=== PATIENT | female | born 1930 | race African-American/Black ===

== ENCOUNTER 2017-05-26 11:41 | Outpatient (CLI) | payer MEDICARE, BC | END 2017-05-26 11:42 | disposition home or self-care (01) | LOC: BICRAD 11:41 | PROVIDERS: ATTEND Internal Medicine | DX: R91.8 Other nonspecific abnormal finding of lung field (principal); I51.7 Cardiomegaly | CPT/HCPCS: 71046 ==

== ENCOUNTER 2017-06-12 09:06 | Outpatient (CLI) | payer MEDICARE, BC | END 2017-06-12 09:07 | disposition home or self-care (01) | LOC: BICMAMMO 09:06 | PROVIDERS: ATTEND Internal Medicine | DX: Z12.31 Encounter for screening mammogram for malignant neoplasm of breast (principal) | CPT/HCPCS: 77063; 77067 ==

== ENCOUNTER 2018-06-01 11:55 | Inpatient (IN) | payer MEDICARE, BC ==
[2018-06-01 12:31] LABS: #Monocytes 0.4 thou/uL (0.11-0.59); #Neutrophils 2.3 thou/uL (1.40-6.50); %Basophils 0.7 % (0.0-1.0); %Eosinophils 0.1 % (0.0-10.0); %Monocytes 9.6 % (0.0-10.0); %Neutrophils 62.6 % (42.0-75.0); Hemoglobin 12.9 g/dL (12.0-16.0); Mean Corpuscular HGB CONC 30.6 g/dL (32.0-36.0); Mean Corpuscular Hemoglobin 28.5 pg (27.0-31.0); Mean Corpuscular Volume 93.2 fL (78.0-98.0); Platelet Count 153 thou/uL (130-400); RBC Distribution Width 13.4 % (11.5-14.5); Red Blood Cell (RBC) Count 4.53 mill/uL (4.20-5.40); White Blood Cell (WBC) Count 3.6 thou/uL (4.8-10.8)
[2018-06-01 12:53] LABS: ALT (SGPT) 92 U/L (8-55); AST (SGOT) 167 U/L (5-34); Albumin 3.6 g/dL (3.4-4.8); Alkaline Phosphatase 60 U/L (40-150); Anion Gap 18 mmol/L (10-20); BUN (Urea Nitrogen) 21 mg/dL (9.8-20.1); Bilirubin, Total 1.5 mg/dL (0.2-1.2); Calc. Creatinine Clearance 0 mL/min (70-130); Calcium 8.8 mg/dL (7.8-10.44); Carbon Dioxide 20 mmol/L (23-31); Chloride 105 mmol/L (98-107); Estimated GFR-MDRD 61; Globulin 2.9 g/dL (2.4-3.5); Glucose 109 mg/dL (83-110); Lipase 38 U/L (8-78); Potassium 3.6 mmol/L (3.5-5.1); Protein, Total 6.5 g/dL (6.0-8.3); Sodium 139 mmol/L (136-145)
--- NOTE | 2018-06-01 13:20 | CT ---
CT OF BRAIN PERFORMED WITHOUT CONTRAST ENHANCEMENT: Date: 06/01/18 HISTORY: Head injury status post fall. FINDINGS: Ventricular and cisternal system shows fairly age-appropriate change. There is decreased attenuation of the periventricular white matter consistent with chronic white matter change. There are no signs o f intracerebral hemorrhage or extra-axial fluid collections. The mastoid air cells and visualized sin uses are clear. IMPRESSION: No acute intracranial abnormalities. POS: [facility]
--- NOTE | 2018-06-01 13:26 | CT ---
CT CERVICAL SPINE PERFORMED WITHOUT CONTRAST ENHANCEMENT: Date: 06/01/18 HISTORY: Fall with neck pain. FINDINGS: Vertebral bodies are normal in height. There is marked disc narrowing at C6-7 and C7-T1. There are pr onounced degenerative facet changes present, which are more left-sided. The facets do appear to be wi thin normal alignment. There is moderate left-sided foraminal narrowing at C3-4 and mild bilateral fo raminal narrowing at C4-5 and right-sided foraminal narrowing at C5-6. There is no CT evidence for fr acture. The lung apices are clear. IMPRESSION: No CT evidence of fracture of the cervical spine. POS: [facility]
[2018-06-01] MEDS ORDERED: Furosemide 40 MG/4 ML VIAL ONE ×2 (14:03→20:02)
[2018-06-01 14:46] LABS: Bilirubin Negative (Negative); Blood, Urine Small (Negative); Clarity CLOUDY (Clear); Glucose, Urine (Dipstick) Negative (Negative); Leukocyte Negative (Negative); Nitrite Negative (Negative); Protein, Urine (Dipstick) 100 mg/dL (Neg-Trace); Specific Gravity, Urine 1.015 (1.002-1.036); pH, Urine 5.5 (5.0-9.0)
[2018-06-01 14:48] LABS: Bacteria/HPF None Seen HPF (None Seen); Hyaline Casts/LPF 7-10 HYALINE CAST LPF (0-3 Hyaline); Pathc Cast-AUWi Flag 1.45 (0-2.49)
[2018-06-01 14:57] LABS: Renal Epithelial None Seen HPF (0-3); Transitional Epithelial NONE SEEN HPF (0-3)
[2018-06-01 15:14] LABS: CKMB 3.1 ng/mL (0-6.6)
--- NOTE | 2018-06-01 15:29 | RAD ---
CHEST 1 VIEW: Date: 06/01/18 HISTORY: Cough. Shortness of breath. Lower extremity swelling. COMPARISON: 05/26/17. FINDINGS: There is rotation to the left. There is bony demineralization. There is some bilateral vascular conge stion with some parenchymal changes in the right lower lobe, becoming somewhat confluent, certainly c oncerning for the possibility of right lower lobe pneumonia. There is minimal cardiomegaly, as well a s some pleural and parenchymal opacity changes in the left retrocardiac region, although this does no t appear significantly changed from the prior study. IMPRESSION: Evidence for cardiomegaly with bilateral vascular congestion and overall stable pleural and parenchym al opacity changes in the left base and retrocardiac region. New parenchymal changes in the right low er lobe and infrahilar region, concerning for pneumonia. Rotation to the left. Bony demineralization. Atherosclerosis of aorta. POS: [facility]
[2018-06-01] MEDS ORDERED: Enoxaparin Sodium 80 MG/0.8 ML SYRINGE ONE (15:48)
[2018-06-01] MEDS ORDERED: Lorazepam 2 MG/ML VIAL ONE (19:21)
[2018-06-01] MEDS ORDERED: Ondansetron PF 4 MG/2 ML Vial IVP PRN (19:44)
[2018-06-01] MEDS ORDERED: Ondansetron ODT 4 MG TAB PO PRN (19:44)
[2018-06-01] MEDS ORDERED: Nitroglycerin 2% Ointment 1 INCH/1 GM Packet ONE (19:54)
[2018-06-01] MEDS ORDERED: VANCOMYCIN IVPB PRN (20:05)
[2018-06-01 20:55] LABS: Troponin I 0.537 ng/mL (< 0.028)
[2018-06-01] MEDS ORDERED: Vancomycin HCl 1 GM in Premix Bag 1 BAG IVPB SCH (21:00)
[2018-06-01] MEDS ORDERED: Cefepime 2 GM in Sodium Chloride 0.9% 100 ML IVPB SCH (21:00)
[2018-06-01] MEDS ORDERED: Vancomycin HCl 1.5 GM in Sodium Chloride 0.9% 250 ML 300 ML IVPB SCH (21:15)
[2018-06-01] MEDS ORDERED: Piperacillin/Tazobactam 3.375 GM in Sodium Chloride 0.9% 100 ML IVPB SCH (23:59)
[2018-06-02] MEDS ORDERED: Cefepime 2 GM in Sodium Chloride 0.9% 100 ML IVPB SCH ×2 (02:15→21:00)
[2018-06-02 05:29] LABS: Anion Gap 15 mmol/L (10-20); BUN (Urea Nitrogen) 24 mg/dL (9.8-20.1); Calc. Creatinine Clearance 43 mL/min (70-130); Calcium 8.1 mg/dL (7.8-10.44); Carbon Dioxide 26 mmol/L (23-31); Chloride 107 mmol/L (98-107); Estimated GFR-MDRD 67; Sodium 145 mmol/L (136-145)
[2018-06-02 05:33] LABS: Glucose 53 mg/dL (83-110); Potassium 2.9 mmol/L (3.5-5.1)
[2018-06-02] MEDS ORDERED: Dextrose 50% Abboject 50 ML SYRINGE ONE (05:40)
[2018-06-02] MEDS ORDERED: Dextrose 50% Abboject 50 ML SYRINGE IVP PRN (06:00)
[2018-06-02] MEDS ORDERED: Dextrose 5% in Water 1,000 ML IV PRN (06:00)
[2018-06-02] MEDS ORDERED: Insulin Regular 300 UNITS/3 ML VIAL SC PRN (06:00)
[2018-06-02] MEDS: Potassium Chloride 20 MEQ in Premix Bag 1 BAG IVPB SCH ×2 (06:15→09:18)
[2018-06-02 06:39] LABS: Band 4 % (5-11); Hemoglobin 11.8 g/dL (12.0-16.0); Hypochromia SLIGHT = 6-15 cells (100X) (0-5/hpf); Lymphocytes 20 % (21-51); MDiff Complete? YES; Mean Corpuscular Hemoglobin 28.5 pg (27.0-31.0); Mean Corpuscular Volume 89.3 fL (78.0-98.0); Metamyelocyte 4 % (0-0); Monocytes 48 % (0-10); Myelocyte 2 % (0-0); Neutrophil 22 % (42-75); Platelet Count 93 thou/uL (130-400); Platelet Morphology Comment Appears Decreased; RBC Distribution Width 13.3 % (11.5-14.5); Red Blood Cell (RBC) Count 4.14 mill/uL (4.20-5.40); Reflex for Review?? YES
--- NOTE | 2018-06-02 06:39 | HP ---
PRIMARY CARE DOCTOR: Ana Cortez MD CODE STATUS: Full code. TIME OF EVALUATION: 07:20 p.m. CHIEF COMPLAINT: Shortness of breath. HISTORY OF PRESENT ILLNESS: This is an 87-year-old female patient with past medical history of hypertension, diabetes, CHF, arthritis, came to the hospital after having a fall. The patient has been getting weak for the past few days and probably worsening shortness of breath. As per family members, the patient had been taking Lasix; however, she had missed few doses in the past few days. Symptoms were severe. The patient came with hypoxic respiratory failure. Positive chest x- ray for congestive heart failure. The patient was needing BiPAP to keep saturation above 90 and has significant rales bilaterally. Symptoms are severe, likely treated for underlying CHF and also pneumonia. The patient had associated fever of 102 in the ER. REVIEW OF SYSTEMS: Unable to obtain. The patient is not able to give any history due to respiratory distress and an underlying confusion. PAST MEDICAL HISTORY: As mentioned in the HPI. PAST SURGICAL HISTORY: Colon surgery. PSYCH HISTORY: No previous psych history. SOCIAL HISTORY: No alcohol. No drugs. Quit smoking more than 10 years ago. KNOWN ALLERGIES: Penicillin reported. FAMILY HISTORY:Reviewed and no contributory for current presentation. MEDICATIONS: 1. Verapamil. 2. Bisoprolol. 3. Metformin. 4. Furosemide. 5. Clonidine. PHYSICAL EXAMINATION: VITAL SIGNS: On presentation, blood pressure 204/99 with heart rate 63, respiratory rate was 14, and temperature 98.4. Pain was zero. Oxygen saturation was 88 on home BiPAP. Blood pressures come down after treatment of anxiety and respiratory treatment. GENERAL APPEARANCE: The patient is alert, she is oriented, in distress due to respiratory failure. HEENT: Eye, normal conjunctivae. Moist oral mucosa. Anicteric. Bilateral JVD. RESPIRATORY: Bilateral rales with decreased air entry. Wheezing. The patient is tachypneic, in respiratory distress. CARDIOVASCULAR: Tachycardiac, hypertensive, regular rhythm. No murmurs. No gallop. Bilateral leg edema. ABDOMEN: Normal bowel sounds. MUSCULOSKELETAL: Baseline range of motion and strength. No tenderness. SKIN: Warm, intact. No pallor. No rash. No redness. Peripheral pulses are present. Capillary refill seems to be intact. NEURO: No evidence of any new focal weakness. Baseline speech. Cranial nerve seems to be intact. PSYCH: The patient is confused, in distress, willing to take the BiPAP off, unable to explore psych. DIAGNOSTIC DATA: EKG was reviewed. The patient has normal sinus rhythm with a rate of 68, VT 172, QRS 100, and QT corrected 472. Brain CT was reviewed. The patient has no acute intracranial abnormalities. Cervical spine, the patient has no CTA evidence of fracture of the cervical spine. Chest x-ray, the patient has evidence for cardiomegaly with bilateral vascular congestion. Overall stable. Parenchymal opacities changes in the left base and retrocardiac region. No parenchymal changes in the right lower lobe and infrahilar regions concerning for pneumonia. Rotation to the left . Atherosclerosis of aorta. labs were reviewed - elevated troponin, d-dimer, lft's, leukopenia, rest normal ASSESSMENT AND PLAN: 1. Acute hypoxic respiratory failure, pt pt presented with hypoxia needing bipap to keep saturation above 90, likely due to underlying pulmonary edema and also pneumonia. Will continue with non invasive positive pressure ventilation, will treat underlying etiologies. 2. Possible pneumonia pt has fever, cxr reportedly with pneumonia as per radiology report, will continue antibiotics, follow cultures. 3. CHF exacerbation patient presented with pulmonary edema, has received diuresisi and has gotten 1300 ml output, will cotinue lasix although fluid balance could be different since pt has underlying sepsis. 4. NSTEMI likely type 2, due to underlying comorbidities inlcuding chf exacerbation and also sepsis, we will trend, would consult cardiology for any further recommendations, 5. Elevated lft's likely due to underlying chf, would trend and treat accordingly. 6. Elevated dimer, pt received lovenox, pe to be ruled out. 7. Sepsis with organ dysfunction, pt presented with pneumonia , fever, respiratory failure, congestive heart failure, started on abt's fluid resuscitation, limitted due to underlying chf, will need to find right fluid balance. 8. DVT prophylaxis - on lovenox Job ID: [id number] [facility]
[2018-06-02] MEDS ORDERED: Prevnar 13-Val Conj/PF 0.5 ML SYRINGE IM ONE (09:00)
[2018-06-02] MEDS ORDERED: Furosemide 40 MG/4 ML VIAL ONE (10:25)
[2018-06-02] MEDS ORDERED: Potassium Chloride 20 MEQ TAB PO SCH (11:15)
--- NOTE | 2018-06-02 12:10 | CON ---
DATE OF CONSULTATION: HISTORY OF PRESENT ILLNESS: Rosaura Galindo is an 87-year-old black female, who has been evaluated by Dr. Alcaraz in the past in the office for peripheral vascular disease. She denies any history of heart failure or myocardial infarction. Apparently, she has been having increasing weakness and worsening shortness of breath over the last several days. She had a fall at home and was brought to the emergency room. She was hypoxic and BiPAP, was needed to keep her saturation above 90. Transferred with a temperature of 102 in the emergency room. Blood pressure was 204/99. In the emergency room, she received Lasix 80 mg IV, DuoNeb, Lovenox 1 mg/kg, Ativan 0.5 IV, nitroglycerin patch 1 inch topically, and then later an additional 40 mg of Lasix. She denies any chest discomfort. PAST MEDICAL HISTORY: Family member stated that she has congestive heart failure, although Ms. Galindo denies this. She has history of hypertension, diabetes, and arthritis. MEDICATIONS: 1. Verapamil 180 b.i.d. 2. Bisoprolol 10 mg b.i.d. 3. Metformin 500 mg daily. 4. Furosemide 20 mg b.i.d. 5. Clonidine 0.1 mg daily. ALLERGIES: PENICILLIN. PAST SURGICAL HISTORY: Hysterectomy. SOCIAL HISTORY: She stopped smoking in 1959. She does not drink. REVIEW OF SYSTEMS: Review of systems is otherwise unremarkable. PHYSICAL EXAMINATION: VITAL SIGNS: Blood pressure 165/72 and pulse of 74. HEENT: PERRL. NECK: Supple. CHEST: Reveals bilateral expiratory wheezing and bilateral crackles. CARDIOVASCULAR: S1 and S2 normal without any S3, S4, or murmurs. ABDOMEN: Normal bowel sounds without tenderness or organomegaly. EXTREMITIES: Reveal 1+ pretibial edema. NEUROLOGIC: Grossly intact. SKIN: Warm and dry. LABORATORY DATA: EKG revealed normal sinus rhythm with lateral ST-segment depression and poor R-wave progression V1 to V2. Hemoglobin 11.8, hematocrit 37.0, white count 4000, and platelets 93,000. D-dimer 3.61. Sodium 145, potassium 2.9, chloride 107, carbon dioxide 24, BUN 12, and creatinine 0.96. Troponin I is up to 0.537. BNP 13,998.4. AST 167, ALT 92, and alkaline phosphatase is normal. Chest x-ray reveals cardiomegaly and bilateral vascular congestion. It also appears to be an infiltrate on the right. IMPRESSION: 1. Fall at home. 2. Probable right lung pneumonia. 3. Acute on chronic congestive heart failure with BNP of almost 14,000. 4. Hypertension. 5. Diabetes. 6. Former smoker. 7. Arthritis. 8. Non-ST segment elevation myocardial infarction versus demand ischemia. PLAN: The patient will continue to be diuresed. She has been placed on cefepime. With presumed left ventricular dysfunction, the verapamil needs to be discontinued. She will be started on carvedilol with gradual increasing doses. Job ID: [id number] [facility]
[2018-06-02] MEDS ORDERED: Magnesium Sulfate 4 GM in Sodium Chloride 0.9% 250 ML 250 ML IVPB SCH (13:00)
--- NOTE | 2018-06-02 13:20 | CON ---
DATE OF CONSULTATION: SERVICE: Pulmonary Medicine. REASON FOR CONSULTATION: Respiratory failure. HISTORY OF PRESENT ILLNESS: The patient is an 87-year-old female with past medical history significant for diabetes and heart failure. She presented to the hospital with increasing shortness of breath. She might have had an episode of vomiting. She is a very poor historian and really cannot provide much history. Many things that I ask her about, she will answer and then her family will have to correct her. She was noted to have a fever of 102 in the emergency department. Either way, because of the shortness of breath, she presented to the ER. She required BiPAP, intermittently. Overnight, she was diuresed and given some nitroglycerin paste because of severely elevated blood pressures. She was given some antibiotics. She was on BiPAP briefly, but this was discontinued early this morning. At this point, she is breathing comfortably and has no complaints of chest pain, fevers, chills, nausea, or vomiting. She is coughing. She is not bringing up any sputum based on what she tells me. Otherwise, there has been no interval change to her condition. PAST MEDICAL HISTORY: 1. Heart failure. 2. Hypertension. 3. Dyslipidemia. 4. Type 2 diabetes mellitus. PAST SURGICAL HISTORY: Colon surgery. SOCIAL HISTORY: Negative for alcohol, tobacco, or illicit drug use. She has a greater than 50-pack year history of smoking. She denies any illicit drugs and has no exposure to chemicals, dust, asbestos, or tuberculosis. FAMILY HISTORY: Noncontributory. ALLERGIES: PENICILLIN. MEDICATIONS: List of her inpatient medications was reviewed. No specific updates were made at this time. REVIEW OF SYSTEMS: General, head, ears, eyes, nose, throat, cardiovascular, respiratory, GI, , musculoskeletal, neurologic, and skin are negative except as mentioned in the HPI. PHYSICAL EXAMINATION: VITAL SIGNS: Afebrile currently. She had a T-max of 99.7 in our current system. That being said, there was a reported temperature of 102 in the emergency department. Pulse 74, blood pressure 151/90, respirations 27, and saturation 97 % on 2 L nasal cannula. GENERAL: The patient is awake and alert, in no apparent distress. LUNGS: Decent air entry. There is no prolonged expiratory phase. Extensive crackles and rhonchi are noted. No wheezing are appreciated. HEART: Normal rate and regular. ABDOMEN: Soft, nontender, and nondistended. Bowel sounds are positive. MUSCULOSKELETAL: No cyanosis or clubbing. There is trace pitting in the bilateral lower extremities. NEUROLOGIC: Grossly nonfocal. LABORATORY DATA: WBC 4.0, hemoglobin 11.8, and platelets 93,000 and downtrending. Neutrophil count is 22% on top of 4% bands. Monocyte count is interestingly 48% . D-dimer 3.61. Potassium 2.9, glucose 53. Magnesium 1.0. Troponin 0.537, which is up trending. BNP 14,000. AST and ALT are marginally elevated. Total bilirubin 1.5. Creatinine is downtrending to 0.9. Urine cultures are unremarkable to date. IMAGING STUDIES: 1. CT of the brain demonstrates no acute intracranial abnormality. 2. CT of the C-spine demonstrates no acute subluxation or fracture of the C- spine. 3. Chest x-ray demonstrates cardiomegaly, bilateral vascular congestion. The left base has a consolidation. Pneumonia cannot be excluded. No pneumothorax is otherwise identified. ASSESSMENT: 1. Acute hypoxic respiratory failure. 2. Community-acquired pneumonia. 3. Severe sepsis. 4. Acute on chronic heart failure, underlying type not known at this point. 5. Osp-FX-asizmcute myocardial infarction. 6. Electrolyte derangement. DISCUSSION AND PLAN: I will replace the potassium and magnesium. We will check all these things and phosphorus tomorrow morning. I agree with our empiric antibiotic coverage for lung-related issues. I will add blood cultures x2 if she has an additional fever. At this point, I think we can postpone a V/Q scan as the patient has had a profound improvement to diuretics and supportive measures. Nitroglycerin paste will be interrupted. Pulmonary/Critical Care will continue to follow while the patient remains in this location. 70 minutes have been devoted to this patient in various activities. I personally reviewed all imaging studies and laboratory data noted within this document. For fifty percent of this time, I was interacting with the patient at the bedside or coordinating care with the care team. For the remainder of the time I was immediately available to the patient in the hospital unit. Job ID: [id number] [facility]
[2018-06-02] MEDS: Potassium Chloride 20 MEQ TAB PO SCH ×3 (13:25→18:10)
[2018-06-02] MEDS ORDERED: Furosemide 40 MG/4 ML VIAL SLOW IVP SCH (14:00)
[2018-06-02] MEDS: Carvedilol 3.125 MG TAB PO SCH (18:10)
[2018-06-02] MEDS ORDERED: Vancomycin HCl 750 MG in Sodium Chloride 0.9% 250 ML 250 ML IVPB SCH (22:00)
[2018-06-03 05:39] LABS: Anion Gap 12 mmol/L (10-20); BUN (Urea Nitrogen) 26 mg/dL (9.8-20.1); Calc. Creatinine Clearance 41 mL/min (70-130); Calcium 8.3 mg/dL (7.8-10.44); Carbon Dioxide 29 mmol/L (23-31); Chloride 108 mmol/L (98-107); Estimated GFR-MDRD 65; Glucose 87 mg/dL (83-110); Magnesium 2.3 mg/dL (1.6-2.6); Potassium 4.4 mmol/L (3.5-5.1); Sodium 145 mmol/L (136-145)
[2018-06-03 05:43] LABS: Phosphorus 1.9 mg/dL (2.3-4.7)
[2018-06-03] MEDS: Furosemide 40 MG/4 ML VIAL SLOW IVP SCH (06:30)
[2018-06-03] MEDS ORDERED: Potassium Chloride 20 MEQ TAB PO SCH (08:00)
[2018-06-03] MEDS ORDERED: Potassium Phosphate 14 MMOL in Sodium Chloride 0.9% 250 ML 250 ML IVPB SCH (08:00)
[2018-06-03] MEDS: Carvedilol 3.125 MG TAB PO SCH ×2 (08:39→15:23)
--- NOTE | 2018-06-03 12:15 | PRG ---
DATE OF SERVICE: SUBJECTIVE: The patient is seen and examined at bedside. Two family members present in the room during my visit. The patient's questions are answered satisfactorily. OBJECTIVE: VITAL SIGNS: Blood pressure is 138/68, pulse is 76, respiratory rate is 32, and O2 saturation is 100. HEENT: Head is atraumatic and normocephalic. Eyes are PERRLA. Sclerae nonicteric. Oral mucosa is moist. NECK: Supple. LUNGS: Bilateral rales and crackles present. HEART: S1 and S2 distant. No S3. No S4. ABDOMEN: Soft and nontender. Bowel sounds are present. No organomegaly. EXTREMITIES: 2+ peripheral edema, similar bilaterally. NEUROLOGICAL: She follows my commands. She moves her all four extremities. LABORATORY DATA: Labs showed sodium of 145, potassium 4.4, chloride 108, CO2 of 29, BUN 26, creatinine 0.98, and phosphorus 1.9. Glycemia is ranging from 85 to 100, calcium 8.3, and magnesium 2.3. Microbiology, urine culture is growing 25,000 to 50,000 of mixed skin nikki. IMPRESSION: 1. Community-acquired pneumonia. 2. Respiratory failure. 3. Acute on chronic heart failure. 4. Zte-AI-tushlraxc myocardial infarction. 5. Hypophosphatemia. PLAN: Plan is to replace phosphorus. Continue diuresis. Awaiting echocardiogram results. Continue IV antibiotic with cefepime and continue O2. Obtain CBC today and BMP along with CBC tomorrow morning. Use additional 40 mg of Lasix IV push since her respiratory rate is increased this morning and she has significant rales and rhonchi on both lungs. Job ID: [id number]
[2018-06-03 12:31] LABS: Band 50 % (5-11); Hemoglobin 11.6 g/dL (12.0-16.0); Lymphocytes 11 % (21-51); MDiff Complete? YES; Mean Corpuscular HGB CONC 30.9 g/dL (32.0-36.0); Mean Corpuscular Hemoglobin 28.7 pg (27.0-31.0); Mean Corpuscular Volume 93.1 fL (78.0-98.0); Mean Platelet Volume 10.6 fL (7.4-10.4); Metamyelocyte 9 % (0-0); Monocytes 3 % (0-10); Myelocyte 1 % (0-0); Neutrophil 26 % (42-75); Platelet Count 111 thou/uL (130-400); RBC Distribution Width 13.2 % (11.5-14.5); Red Blood Cell (RBC) Count 4.02 mill/uL (4.20-5.40); White Blood Cell (WBC) Count 7.2 thou/uL (4.8-10.8)
[2018-06-03 12:33] LABS: Anion Gap 13 mmol/L (10-20); BUN (Urea Nitrogen) 26 mg/dL (9.8-20.1); Calc. Creatinine Clearance 41 mL/min (70-130); Calcium 8.3 mg/dL (7.8-10.44); Carbon Dioxide 29 mmol/L (23-31); Chloride 108 mmol/L (98-107); Estimated GFR-MDRD 65; Glucose 115 mg/dL (83-110); Potassium 4.1 mmol/L (3.5-5.1); Sodium 146 mmol/L (136-145)
--- NOTE | 2018-06-03 13:29 | PRG ---
DATE OF SERVICE: 06/03/2018 SERVICE: Pulmonary Medicine. INTERVAL HISTORY: The patient is doing great from respiratory standpoint. Breathing comfortably. Denies any current chest pain, fevers, or chills. Otherwise, there has been no change to her condition. She is breathing much more comfortably today. She is having a little bit more wheezing. She has got some forced exhalation maneuvers present. She did not require the BiPAP last night. I talked to the patient's family today. Apparently, she has been having some issues with memory going back for several years. They are slowly progressing. PHYSICAL EXAMINATION: VITAL SIGNS: Afebrile with a temperture-max of 99.4, pulse 76, blood pressure 147/65, respirations are 24, and saturation 99% on 2 L nasal cannula. GENERAL: The patient is awake and alert, in no apparent distress. LUNGS: Decent air entry. There is a prolonged expiratory phase. Crackles and wheezing are both appreciated. HEART: Normal rate. Regular. ABDOMEN: Soft, nontender, and nondistended. Bowel sounds are positive. MUSCULOSKELETAL: No cyanosis or clubbing. There is no pitting in the bilateral lower extremities. NEUROLOGIC: Grossly nonfocal. LABORATORY DATA: WBC 7.2, hemoglobin 11.6, and platelets are 111,000 and improving. Neutrophil count is 26% on top of 50% bands. D-dimer 3.61. Creatinine 0.98 and BUN 26. Basic metabolic profile is otherwise unremarkable except for a sodium of 146. Phosphorus 1.9. Chloride remains elevated. Urinalysis is unremarkable. IMAGING DATA: Chest x-ray demonstrates cardiomegaly. There is an infiltrate in the right lower lobe. I do not see any pleural effusion present. ASSESSMENT: 1. Acute hypoxic respiratory failure. 2. Community-acquired pneumonia. 3. Fnfig-mg-defcemr heart failure, echo pending. 4. Xef-UH-nfdetddqd myocardial infarction. 5. Electrolyte abnormalities, resolved. 6. Dementia. DISCUSSION AND PLAN: We will continue replacing the phosphorus. I will back off on the Lasix a little bit as she has a severe sepsis and may need her volume right now. We will need to diurese later. We will put her on touch of free water to prevent the hypernatremia from becoming excessive. I will schedule some nebulized medications, and albuterol, treating her acute bronchitis versus chronic obstructive pulmonary disease exacerbation. We will work on mobilization. Pulmonary Critical Care will continue to follow. Job ID: [id number] [facility]
[2018-06-03] MEDS ORDERED: K-Phos Neutral 250 MG TAB PO SCH (13:30)
[2018-06-03] MEDS ORDERED: predniSONE 20 MG TAB PO SCH (13:30)
--- NOTE | 2018-06-03 14:26 | RAD ---
PORTABLE AP CHEST: Date: 06/03/18 HISTORY: Hypoxemia. COMPARISON: 06/01/18. FINDINGS: Cardiac silhouette is magnified by projection, but does appear enlarged. There has been interval incr ease in patchy parenchymal air space opacity at the right lung base suggesting worsening pneumonia. T here is suboptimal evaluation of the left lung base due to technique of the exam and overlying cardia c silhouette. However, there is suggestion of minimal patchy density in the left mid lung zone, which may be related to air space opacity and infectious process. Vascular calcifications seen in thoracic aorta. There is bilateral glenohumeral osteoarthropathy. IMPRESSION: 1. Worsening pneumonia right lung base. 2. Patchy density left mid lung zone, which may also be related to infectious process, and continued follow-up to resolution is recommended. 3. Suboptimal evaluation of left lung base. 4. Cardiomegaly. POS: [facility]
[2018-06-03] MEDS: Dextrose 5% in Water 1,000 ML IV SCH (15:30)
[2018-06-04] MEDS: Furosemide 40 MG/4 ML VIAL SLOW IVP SCH (06:19)
[2018-06-04 06:56] LABS: Anion Gap 16 mmol/L (10-20); BUN (Urea Nitrogen) 31 mg/dL (9.8-20.1); Calc. Creatinine Clearance 38 mL/min (70-130); Calcium 9.1 mg/dL (7.8-10.44); Carbon Dioxide 28 mmol/L (23-31); Chloride 105 mmol/L (98-107); Estimated GFR-MDRD 60; Glucose 195 mg/dL (83-110); Potassium 4.6 mmol/L (3.5-5.1); Sodium 144 mmol/L (136-145)
[2018-06-04 07:13] LABS: Hemoglobin 12.2 g/dL (12.0-16.0); Mean Corpuscular HGB CONC 31.4 g/dL (32.0-36.0); Mean Corpuscular Hemoglobin 28.4 pg (27.0-31.0); Mean Corpuscular Volume 90.7 fL (78.0-98.0); Mean Platelet Volume 11.2 fL (7.4-10.4); Platelet Count 100 thou/uL (130-400); RBC Distribution Width 13.2 % (11.5-14.5); Red Blood Cell (RBC) Count 4.29 mill/uL (4.20-5.40); White Blood Cell (WBC) Count 6.6 thou/uL (4.8-10.8)
--- NOTE | 2018-06-04 07:27 | HP ---
please see previous note, thank you [facility]
--- NOTE | 2018-06-04 08:35 | PRG ---
DATE OF SERVICE: 06/02/2018 SUBJECTIVE: The patient is seen and examined at the bedside. She is on a BiPAP mask during my visit. She feels somewhat better. She is n.p.o. OBJECTIVE: VITAL SIGNS: Blood pressure is 165/72, pulse is 74, respiratory rate is 26, temperature is 98.3, O2 saturation is 94% on BiPAP. HEENT: Her head is atraumatic and normocephalic. Sclerae nonicteric. Conjunctivae pinkish. Oral mucosa is not examined since she wears the mask. LUNGS: Bilateral wheezes and crackles present front and back. HEART: S1 and S2 normal. No S3. No S4. ABDOMEN: Soft, nontender. Bowel sounds are present. No organomegaly. EXTREMITIES: 2 to 3+ peripheral edema similar bilaterally. NEUROLOGICAL EXAMINATION: She is alert and oriented x4. There is no any sensory or motor deficits present. Cranial nerves are intact. LABORATORY DATA: Labs showed white count of 4.0, hemoglobin 11.4, hematocrit 37.0, platelet count is 93,000, 4 bands. Sodium of 145, potassium 2.9, chloride 107, CO2 of 26, BUN 24, creatinine 0.96, glucose 53, calcium 8.1. Second set of troponin is 0.537. Microbiology; urine culture preliminary, less than 10,000 colonies of normal skin nikki. IMPRESSION: 1. Pneumonia. 2. Acute congestive heart failure. 3. Respiratory failure with hypoxemia. 4. . 5. Elevated D-dimers and the patient is scheduled for V/Q scan. 6. Hypertension. 7. Diabetes mellitus. PLAN: We will replace her potassium 40 p.o. plus IV, start on Lasix 40 mg twice a day. Check magnesium level. Obtain Cardiology consultation. She is scheduled for V/Q scan this morning, will stop BiPAP and switch her to nasal cannula. She will be seen by contact lens molder, Dr. Steele, who is public information specialist and we will change her diet from n.p.o. to diabetic. Job ID: [id number]
[2018-06-04 08:38] LABS: Band 10 % (5-11); Hypochromia SLIGHT = 6-15 cells (100X) (0-5/hpf); Lymphocytes 8 % (21-51); MDiff Complete? YES; Monocytes 4 % (0-10); Neutrophil 78 % (42-75); Platelet Morphology Comment Appears Decreased; Polychromasia SLIGHT = 2-3 cells (100X) (0-2/hpf)
[2018-06-04] MEDS: predniSONE 20 MG TAB PO SCH (09:09)
[2018-06-04] MEDS: Carvedilol 3.125 MG TAB PO SCH ×2 (09:09→16:21)
[2018-06-04] MEDS: K-Phos Neutral 250 MG TAB PO SCH (09:09)
[2018-06-04 09:12] LABS: Phosphorus 2.4 mg/dL (2.3-4.7)
--- NOTE | 2018-06-04 12:07 | PRG ---
DATE OF SERVICE: 06/04/2018 SUBJECTIVE: The patient is seen and examined at bedside. She had several bowel movements yesterday. Her appetite is fair. OBJECTIVE: VITAL SIGNS: Blood pressure is 171/86, pulse is 77. She is on 3 L by nasal cannula. Her pulse oximetry is 86 based on the 8 a.m. vitals. HEENT: Her pupils are responding to light properly. Sclerae are nonicteric. NECK: Supple. JVD plus. LUNGS: Bilateral rales and crackles present. HEART: S1 and S2. Somewhat tachycardic. No S3. No S4. ABDOMEN: Soft and nontender. EXTREMITIES: 2+ peripheral edema similar bilaterally. NEUROLOGIC: She follows my commands. She moves her all 4 extremities. There is no any motor deficits. LABORATORY DATA: Labs showed normal white count, hemoglobin 12.2, hematocrit 38.5, and platelet count is 100. Normal electrolytes. BUN 31, creatinine 0.05, glycemia is ranging from 158 to 185. MICROBIOLOGY: Urine culture showed 25,000 to 50,000 mixed skin nikki. DIAGNOSTIC DATA: Echocardiogram showed LVEF diminished at 20% to 25%, moderately enlarged right ventricle cavity, moderate mitral regurgitation, severe tricuspid regurgitation, and moderate pulmonic regurgitation. IMPRESSION: 1. Severe pneumonia. 2. Respiratory failure. 3. Acute on chronic heart failure with left ventricular ejection fraction down to 20% to 25% on a recent echo with multiple valve insufficiencies. 4. Non-ST elevation myocardial infarction. 5. Hypophosphatemia, corrected. PLAN: Plan is to continue her levofloxacin. She was started on prednisone yesterday. We will continue her steroids. We will continue her DuoNeb. We will continue her IV Lasix. The x-ray showed some worsening of pneumonia and her cefepime was switched to levofloxacin by greenhouse worker. We will continue O2 and she is high risk for complications. I met with the family daily and updated about her progress. Job ID: [id number]
--- NOTE | 2018-06-04 13:13 | PRG ---
DATE OF SERVICE: 06/04/2018 SERVICE: Pulmonary Medicine. INTERVAL HISTORY: The patient is doing fine from respiratory standpoint. She is breathing comfortably. She has a big smile on her face today. She does not have any accessory muscle use. Otherwise, she appears to be comfortable. She does not use BiPAP in over 2 days. PHYSICAL EXAMINATION: VITAL SIGNS: Afebrile. Pulse 80, blood pressure 122/98, respirations 25, saturation 95% on 3 L nasal cannula. GENERAL: The patient is awake and alert, in no apparent distress. LUNGS: Decent air entry. Rhonchi are present. There is a slightly prolonged expiratory phase, but I do not appreciate any wheezing or crackles today. HEART: Normal rate. Regular. ABDOMEN: Soft, nontender, nondistended. Bowel sounds are positive. MUSCULOSKELETAL: No cyanosis or clubbing. No pitting in the bilateral lower extremities. NEUROLOGIC: Grossly nonfocal. LABORATORY DATA: WBC 6.6, hemoglobin 12.1, and platelets 100,000. Band count has dropped to 10% on top of 78% neutrophils. D-dimer 3.61, creatinine 1.05 and roughly stable. Basic metabolic profile and phosphorus are unremarkable. Urinalysis is negative. Urine culture is negative x1. ASSESSMENT: 1. Acute hypoxic respiratory failure, improving. 2. Community-acquired pneumonia. 3. Tzwll-jr-jtzburo systolic heart failure. 4. Demand ischemia. 5. Electrolyte abnormalities, resolved. DISCUSSION AND PLAN: The patient has returned to euvolemia. I will suspend her Lasix for the time being. We can intermittently dose this through time. Her electrolytes have returned to normal. I will give her a laboratory holiday tomorrow morning and suspend our free water. She is stable for transition out of the ICU to the telemetry unit. Pulmonary Critical Care will continue to follow while she remains in-house. Ultimately, she will need a repeat chest x-ray in the outpatient setting to verify if her infiltrate resolves. She requires a formal outpatient evaluation for her cognition. Job ID: [id number]
--- NOTE | 2018-06-04 15:17 | PDOC.CTH ---
Cardiology Progress Note - Subjective The pt seen and examined. No overnight events. No cardiac complaints. In AM, she was awake and eating breakfast without any difficulties. However, this afternoon, she has worsening of congestion. - Objective Vital Signs Temp Pulse Pulse Pulse Resp BP BP 06/04/18 12:57 88 28 H 06/04/18 11:25 96.2 F L 06/04/18 09:40 77 79 163/102 H 171/86 H 06/04/18 07:45 85 24 H 06/04/18 07:38 99.1 F 06/04/18 04:00 99.0 F Pulse Ox Pulse Ox 06/04/18 12:57 100 06/04/18 11:25 06/04/18 09:40 100 06/04/18 07:45 95 06/04/18 07:38 06/04/18 04:00 Weight 138 lb 4 oz 06/03/18 06/04/18 06/05/18 06:59 06:59 06:59 Intake Total 1260 1610 Output Total 900 Balance 360 1610 - Physical Examination Neck: no JVD present Lungs: other: (coarses and diminished at bases) Heart: RRR Abdomen: soft Extremities: other: (No edema) - Telemetry Telemetry Rhythm: SR - Labs Result Diagrams: 06/04/18 06:22 06/04/18 06:22 Troponin/CKMB CK-MB (CK-2) 3.1 ng/mL (0-6.6) 06/01/18 13:16 Troponin I 0.537 ng/mL (< 0.028) H* 06/01/18 19:08 - Assessment/Plan 1. Acute on Chronic systolic HF - will resume Lasix 20mg IV BID for worsening of congestion; Start Lisinopril 5mg qd from today. On Bblocker. 2. Rt PNA - managed by PCP/pulonologist. 3. HTN - Start Lisinopril 5mg qd; 4. DM type 2 - stable 5. Arthritis - 6. Dementia - stable MAR reviewed * EF 20-25%, mod LVH, mod ERV, mild dilated LA, mod MR, mod OH, mild-mod AR, and severe TR. Pt. seen and eval. by me. She has dementia and offers very little input at this time. Decreased inspiratory effort, decreased breath sounds at the bases. RRR. No edema. I agree with the A/P by the TECHNICAL ASSOC. Continue low dose diuretics. Severe decrease in LV function. With her dementia , I do not feel that she is a good candidate for a cardiac cath or an AICD. We will continue to treat medically. Review of Systems - Review of Systems Constitutional: reports: no symptoms reported EENTM: reports: no symptoms reported Respiratory: reports: no symptoms reported Cardiac (ROS): reports: no symptoms reported ABD/GI: reports: no symptoms reported : reports: no symptoms reported Musculoskeletal: reports: no symptoms reported
[2018-06-04] MEDS: Dextrose 5% in Water 1,000 ML IV SCH (15:29)
[2018-06-04] MEDS ORDERED: Furosemide 20 MG/2 ML VIAL SLOW IVP SCH (15:30)
[2018-06-04] MEDS ORDERED: Lisinopril 5 MG TAB PO SCH (15:30)
[2018-06-05 06:11] LABS: Anion Gap 13 mmol/L (10-20); BUN (Urea Nitrogen) 33 mg/dL (9.8-20.1); Calc. Creatinine Clearance 39 mL/min (70-130); Carbon Dioxide 29 mmol/L (23-31); Chloride 105 mmol/L (98-107); Estimated GFR-MDRD 61; Glucose 133 mg/dL (83-110); Potassium 4.5 mmol/L (3.5-5.1); Sodium 142 mmol/L (136-145)
[2018-06-05] MEDS: Furosemide 20 MG/2 ML VIAL SLOW IVP SCH ×2 (06:36→14:29)
[2018-06-05] MEDS: Carvedilol 3.125 MG TAB PO SCH ×2 (08:26→17:21)
[2018-06-05] MEDS: Lisinopril 5 MG TAB PO SCH (08:26)
[2018-06-05] MEDS: predniSONE 20 MG TAB PO SCH (08:26)
--- NOTE | 2018-06-05 09:02 | PDOC.CTH ---
Cardiology Progress Note - Subjective The pt seen and examined. No overnight events. No cardiac complaints. She is eating well in this AM. - Objective Vital Signs Temp Pulse Resp BP Pulse Ox 06/05/18 08:26 103 H 138/64 06/05/18 07:30 98.6 F 06/05/18 07:06 100 06/05/18 06:53 75 24 H 100 06/05/18 04:00 98.2 F 06/05/18 00:05 78 32 H 99 06/05/18 00:00 99.6 F Weight 139 lb 06/04/18 06/05/18 06/06/18 06:59 06:59 06:59 Intake Total 1610 990 Balance 1610 990 - Physical Examination General/Neuro: other: (confused) Lungs: other: (coarse and diminished at bases) Heart: other: (irregular) Abdomen: soft Extremities: other: (No edema) - Telemetry Telemetry Rhythm: Afib 90-120s - Labs Result Diagrams: 06/04/18 06:22 06/05/18 04:55 Troponin/CKMB CK-MB (CK-2) 3.1 ng/mL (0-6.6) 06/01/18 13:16 Troponin I 0.537 ng/mL (< 0.028) H* 06/01/18 19:08 - Assessment/Plan 1. New onset Afib with RVR since 0700 on 06/05/2018 - Will start Diltiazem 5mg/h ; cont. to monitor on tele 2. Acute on Chronic systolic HF - stable with Lasix 20mg IV BID; On Lisinopril 5mg qd and Coreg 3.125mg BID. 2. Rt PNA - managed by PCP/pulonologist. 3. HTN - stable with current medication. 4. DM type 2 - stable 5. Arthritis - 6. Dementia - MAR reviewed * EF 20-25%, mod LVH, mod ERV, mild dilated LA, mod MR, mod NM, mild-mod AR, and severe TR. * the pt is not a good candidate for a cardiac cath or an AICD due to dementia. Continue medical treatment. Pt. seen and eval. by me. I agree with the A\P by the LOCAL COORDINATOR. She will be started on diltiazem, I will also add eliquis. . I spoke to the family and have explained the plan. Review of Systems - Review of Systems Constitutional: reports: no symptoms reported EENTM: reports: no symptoms reported Respiratory: reports: no symptoms reported Cardiac (ROS): reports: no symptoms reported ABD/GI: reports: no symptoms reported : reports: no symptoms reported
[2018-06-05] MEDS ORDERED: Diltiazem 125 MG in Sodium Chloride 0.9% 100 ML IVPB SCH (10:15)
--- NOTE | 2018-06-05 10:43 | PRG ---
DATE OF SERVICE: 06/05/2018 SERVICE: Pulmonary Medicine. INTERVAL HISTORY: The patient is doing fine from respiratory standpoint. Denies any current chest pain, fevers, chills, nausea, or vomiting. She went into atrial fibrillation with a slightly elevated rate. Otherwise, she is completely asymptomatic. PHYSICAL EXAMINATION: VITAL SIGNS: Afebrile. Pulse 103, blood pressure 138/64, respirations 24, and saturations 100% on 3 L nasal cannula. GENERAL: The patient is awake and alert, in no apparent distress. LUNGS: Excellent air entry. There is no prolonged expiratory phase or wheezing present. Dependent crackles are present in the right, not on the left. HEART: Normal rate, regular. ABDOMEN: Soft, nontender, and nondistended. Bowel sounds are positive. MUSCULOSKELETAL: No cyanosis or clubbing. There is no pitting in the bilateral lower extremities. NEUROLOGIC: Grossly nonfocal. LABORATORY DATA: WBC 6.6, hemoglobin 12.2, and platelets 100,000. Creatinine 1.03 and roughly stable. Basic metabolic profile is otherwise unremarkable. Potassium 4.5. Phosphorus was previously 2.4. Magnesium has not been checked in quite some time. ASSESSMENT: 1. Acute hypoxic respiratory failure, improving. 2. Community-acquired pneumonia, severe. 3. Acute on chronic systolic heart failure. 4. Atrial fibrillation with RVR. 5. Demand ischemia. DISCUSSION AND PLAN: We will check a magnesium with tomorrow morning's laboratories. Pulmonary Critical Care will continue to follow along. From my perspective, she is stable for transition to the telemetry unit. She has just gone into atrial fibrillation, so this is going to require a little bit more attention prior to dismissal from the hospital. We will need to look into [facility] options in the outpatient setting as I do not think she will be in a place where she can go home directly. We will work on mobilizing the patient. Job ID: [id number]
[2018-06-05] MEDS: K-Phos Neutral 250 MG TAB PO SCH (10:52)
[2018-06-05] MEDS ORDERED: Apixaban 2.5 MG TAB PO SCH ×2 (11:09→11:30)
--- NOTE | 2018-06-05 11:15 | PQF ---
JIMMY RAY ZBIGNIEW A MD [id number] [facility]- B11 [id number] CLINICAL DOCUMENTATION IMPROVEMENT CLARIFICATION FORM: ICD-10 Updated PLEASE DO AN ADDENDUM TO THE PROGRESS NOTE WITH ANY DOCUMENTATION UPDATES OR ADDITIONS AND CARRY THROUGH TO DC SUMMARY. THANK YOU. DATE: 06/05 ATTN : DR. Jin HAYES Please exercise your independent, professional judgment in responding to the clarification form. Clinical indicators are provided on the bottom of this form for your review. Please check appropriate box(s): AMI TYPE: [ x ] NSTEMI (DC type I) [ ] NSTEMI due to Demand Ischemia (AMI Type II) [ ] Demand Ischemia without DC [ ] Other diagnosis [ ] Unable to determine In addition, please specify: Present on Admission (POA): [ x ] Yes [ ] No [ ] Unable to determine CLINICAL INDICATORS - SIGNS / SYMPTOMS / LABS TROPONIN I: 0.372, 0.537 (ADMIT, 06/01) H&P DOCUMENTATION (JUAN): ASSESSMENT/PLAN: 5) NSTEMI, LIKELY TYPE 2, D/T UNDERLYING CO-MORBIDITIES INCLUDING CHF EXACERBATION & ALSO SEPSIS. TROPONIN IS 0.372, SECOND ONE IS 0.537. WE WILL MONITOR. CARDIOLOGY CONS H&P 3/2 (GONZALO): ASSESSMENT: 8) NSTEMI VS DEMAND ISCHEMIA PULMONOLOGY CONS H&P 3/2 & PN 3/3 (MICHELLE): ASSESSMENT: 4) NSTEMI PULMONOLOGY PN 3/4 & 5 (MICHELLE): ASSESSMENT: 5) DEMAND ISCHEMIA ATTENDING PN 3/3 -4 (FREDDY): ASSESSMENT: 4) NSTEMI RISKS: HYPERTENSIVE EMERGENCY ACUTE ON CHRONIC SYSTOLIC HF TREATMENTS: IV DIURETIC (LASIX 06/01 - PRESENT) CARDIOLOGY CONSULT THANK YOU! Dejah (This form is maintained as a part of the permanent medical record) 2014 [employer]. All Rights Reserved Dejah Deluna RN, BSN [email or web address] Office: [phone] IJEOMA
--- NOTE | 2018-06-05 11:30 | PQF ---
JIMMY RAY ZBIGNIEW A MD [id number] [facility]- B11 [id number] CLINICAL DOCUMENTATION IMPROVEMENT CLARIFICATION FORM: ICD-10 Updated PLEASE DO AN ADDENDUM TO THE PROGRESS NOTE WITH ANY DOCUMENTATION UPDATES OR ADDITIONS AND CARRY THROUGH TO DC SUMMARY. THANK YOU. DATE: 06/05 ATTN: DR. Jin HAYES Please exercise your independent, professional judgment in responding to the clarification form. Clinical indicators are provided on the bottom of this form for your review. Please check appropriate box(s) to clarify if the following diagnosis has been ruled in or ruled out: SEPSIS, SOURCE IS PNEUMONIA [ x ] Ruled in diagnosis [ x] Continue to treat [ ] Resolved [ ] Ruled out diagnosis [ ] Other diagnosis [ ] Unable to determine In addition, please specify: Present on Admission (POA): [x ] Yes [ ] No [ ] Unable to determine For continuity of documentation, please document condition throughout progress notes and discharge summary. Thank You. CLINICAL INDICATORS - SIGNS / SYMPTOMS / LABS ER PRESENTATION 06/01: T: 100.8 RA SAT 88%>PLACED ON BIPAP RR: 18- 34 WBC: 3.6 PHYSICIAN H&P 06/01 (JUAN): ASSESSMENT: 7) SEPSIS W/ ORGAN DYSFUNCTION, PT HAS TACHYCARDIA, FEVER, SOURCE IS PNEUMONIA. PT PRESENTED W/ACUTE ORGAN DAMAGE D/T RESPIRATORY FAILURE. NO FURTHER MENTION OF SEPSIS TO DATE RISK FACTORS: COMMUNITY ACQUIRED PNEUMONIA ACUTE HYPOXIC RESPIRATORY FAILURE TREATMENTS: IV ANTIBIOTICS (CEFEPIME 06/01-2; VANCOMYCIN 06/01) PO ANTIBIOTIC (LEVAQUIN 06/03 - PRESENT) IMCU MONITORING FOR BIPAP THANK YOU! Dejah (This form is maintained as a part of the permanent medical record) 2014 [employer]. All Rights Reserved Dejah Deluna RN, BSN [email or web address] Office: [phone] [facility]
--- NOTE | 2018-06-05 12:53 | PRG ---
DATE OF SERVICE: 06/05/2018 SUBJECTIVE: The patient is seen and examined at the bedside. She went into atrial fibrillation. She was started on Cardizem drip. Her appetite is fair. OBJECTIVE: VITAL SIGNS: Blood pressure is 123/69, pulse is 100, respiratory rate is 11 and O2 saturation is 93%. HEENT: Head is atraumatic and normocephalic. Sclerae are nonicteric. Conjunctivae pinkish. Oral mucosa is moist. LUNGS: Bilateral rales and crackles with some wheezes present. HEART: S1 and S2, somewhat distant. No S3. No S4. Irregularly irregular. ABDOMEN: Soft, nontender. EXTREMITIES: 1 to 2+ peripheral edema, nonpitting. NEUROLOGIC: She follows my commands. She shows some dementia. She is able to move her all 4 extremities. LABORATORY WORK: Normal electrolytes. BUN of 33, creatinine 1.03. Glycemia is ranging from 130 to 173. IMPRESSION: 1. Severe pneumonia. 2. Respiratory failure. 3. Cardiomyopathy with ejection fraction of 20%. 4. Mrl-ZM-asirjhadn myocardial infarction. 5. Hypophosphatemia, corrected. 6. New onset atrial fibrillation with rapid ventricular response. PLAN: Continue her levofloxacin. Continue Cardizem drip. The patient is started on Eliquis 2.5 mg per Cardiology. We will continue DuoNeb and continue prednisone. The family was updated on her condition. We will continue our supportive care. Job ID: [id number]
[2018-06-05] MEDS: Apixaban 2.5 MG TAB PO SCH (21:24)
[2018-06-06 05:29] LABS: Magnesium 2.1 mg/dL (1.6-2.6); Phosphorus 3.2 mg/dL (2.3-4.7)
[2018-06-06] MEDS: Furosemide 20 MG/2 ML VIAL SLOW IVP SCH (05:29)
[2018-06-06 05:30] LABS: Anion Gap 12 mmol/L (10-20); BUN (Urea Nitrogen) 32 mg/dL (9.8-20.1); Calc. Creatinine Clearance 41 mL/min (70-130); Carbon Dioxide 30 mmol/L (23-31); Chloride 103 mmol/L (98-107); Estimated GFR-MDRD 66; Glucose 160 mg/dL (83-110); Potassium 4.2 mmol/L (3.5-5.1); Sodium 141 mmol/L (136-145)
[2018-06-06 06:07] LABS: Band 9 % (5-11); Hemoglobin 11.3 g/dL (12.0-16.0); Lymphocytes 28 % (21-51); MDiff Complete? YES; Mean Corpuscular HGB CONC 31.3 g/dL (32.0-36.0); Mean Corpuscular Hemoglobin 28.6 pg (27.0-31.0); Mean Corpuscular Volume 91.2 fL (78.0-98.0); Mean Platelet Volume 10.9 fL (7.4-10.4); Monocytes 3 % (0-10); Neutrophil 60 % (42-75); Platelet Count 100 thou/uL (130-400); Platelet Morphology Comment Appears Decreased; RBC Distribution Width 13.1 % (11.5-14.5); Red Blood Cell (RBC) Count 3.96 mill/uL (4.20-5.40); White Blood Cell (WBC) Count 3.4 thou/uL (4.8-10.8)
[2018-06-06] MEDS: Apixaban 2.5 MG TAB PO SCH ×2 (08:45→20:37)
[2018-06-06] MEDS: Lisinopril 5 MG TAB PO SCH (08:45)
[2018-06-06] MEDS: Carvedilol 3.125 MG TAB PO SCH ×2 (08:47→17:57)
[2018-06-06] MEDS: predniSONE 20 MG TAB PO SCH (08:47)
[2018-06-06] MEDS ORDERED: Diltiazem 125 MG in Sodium Chloride 0.9% 100 ML IVPB SCH (09:14)
--- NOTE | 2018-06-06 09:16 | PDOC.CTH ---
Cardiology Progress Note - Subjective The pt seen and examined. No overnight events. No cardiac complaints. She is eating well in this AM. - Objective Vital Signs Temp Pulse Resp BP Pulse Ox 06/06/18 08:45 79 119/70 06/06/18 08:00 95 06/06/18 07:06 98.4 F 06/06/18 06:40 93 L 06/06/18 06:38 92 24 H 93 L 06/06/18 04:00 97.5 F L 06/06/18 00:15 75 23 H 94 L 06/06/18 00:00 98.2 F Weight 138 lb 3 oz 06/05/18 06/06/18 06/07/18 06:59 06:59 06:59 Intake Total 990 660 Balance 990 660 - Physical Examination General/Neuro: other: (confused) Neck: no JVD present Lungs: other: (diminished at bases) Heart: other: (irregular) Abdomen: soft Extremities: other: (No edema) - Telemetry Telemetry Rhythm: AFib - Labs Result Diagrams: 06/06/18 04:42 06/06/18 04:42 Troponin/CKMB CK-MB (CK-2) 3.1 ng/mL (0-6.6) 06/01/18 13:16 Troponin I 0.537 ng/mL (< 0.028) H* 06/01/18 19:08 - Assessment/Plan 1. New onset Afib with RVR since 0700 on 06/05/2018 - Well controlled HR with Diltiazem 5mg/h, which will be changed to PO 120mg qd from today; On Eliquis 2.5mg BID; cont. to monitor on tele 2. Acute on Chronic systolic HF - stable with Lasix 20mg IV BID, which will be changed to PO 20mg BID from this PM; On Lisinopril 5mg qd and Coreg 3.125mg BID. 2. Rt PNA - managed by PCP/pulonologist. 3. HTN - stable with current medication. 4. DM type 2 - stable 5. Arthritis - 6. Dementia - MAR reviewed * EF 20-25%, mod LVH, mod ERV, mild dilated LA, mod MR, mod IL, mild-mod AR, and severe TR. * the pt is not a good candidate for a cardiac cath or an AICD due to dementia. Continue medical treatment. * From Cardiac standpoint, the pt is stable to tx to care home with stable VS after she receives PO Cardizem. The pt will f/u with Dr Alcaraz' office within 2-4 wks. Pt.seen and eval. by me. I agree with the A/P by the INSTITUTE SCIENTIST. She has more episodes of being lucid but then has confusion again. If she continues in Afib., consider amiodarone with the poor EF. Review of Systems - Review of Systems Constitutional: reports: no symptoms reported EENTM: reports: no symptoms reported Respiratory: reports: no symptoms reported Cardiac (ROS): reports: no symptoms reported ABD/GI: reports: no symptoms reported : reports: no symptoms reported
[2018-06-06] MEDS: Furosemide 20 MG TAB PO SCH (13:11)
--- NOTE | 2018-06-06 15:31 | PRG ---
DATE OF SERVICE: 06/06/2018 SUBJECTIVE: The patient is seen and examined at the bedside. She is feeling better. She is tolerating food without any issues. OBJECTIVE: VITAL SIGNS: Blood pressure is 120/94, pulse is 88, respiratory rate is 16, O2 saturation is 94%. HEENT: Pupils are responding to light properly. Sclerae are nonicteric. Oral mucosa is moist. LUNGS: Bilateral rales are still present, but significantly improved. Some wheezes present too. HEART: S1 and S2. Irregularly irregular. No S3. No S4. ABDOMEN: Soft and nontender. EXTREMITIES: 1 to 2+ peripheral edema, nonpitting. NEUROLOGIC: The patient has some dementia, but she follows my commands. She moves her all four extremities. There are no any motor deficits. LABORATORY DATA: Showed white count of 3.4, hemoglobin 11.3, hematocrit 36.1, platelet count is 100. Electrolytes are within normal limits. BUN is 32, creatinine 0.97. Glycemia is ranging from 138 to 227. Phosphorus 3.2. Magnesium 2.1. IMPRESSION: 1. Respiratory failure with hypoxemia, improving. 2. Community-acquired pneumonia. 3. Congestive heart failure, [id number], with systolic function estimated at 20% to 25%. 4. Atrial fibrillation with rapid ventricular response, improved. 5. ST-elevation myocardial infarction. 6. Hypophosphatemia, corrected. DISCUSSION: The patient overall is doing significantly better. Her heart rate is controlled at this point. She is on anticoagulant. She is switched to p.o. Cardizem and p.o. Lasix. We will continue her levofloxacin, and we will continue her sliding scale with insulin. Job ID: [id number]
--- NOTE | 2018-06-06 16:41 | PRG ---
DATE OF SERVICE: 06/06/2018 SERVICE: Pulmonary Medicine. INTERVAL HISTORY: The patient is actually doing quite well from respiratory standpoint. Denies any current chest pain, fevers, or chills. Otherwise, her heart rate is under good control. Her breathing is fine. PHYSICAL EXAMINATION: VITAL SIGNS: Afebrile, pulse 88, blood pressure 131/78, respirations 16, and saturation 98% on room air. GENERAL: The patient is awake and alert, in no apparent distress. LUNGS: Decent air entry. No prolonged expiratory phase is present. Some minimal crackles are present. No rhonchi. HEART: Normal rate and regular. ABDOMEN: Soft, nontender, and nondistended. Bowel sounds are positive. MUSCULOSKELETAL: No cyanosis or clubbing. There is no pitting in the bilateral lower extremities. NEUROLOGIC: Grossly nonfocal. LABORATORY DATA: WBC 3.4, hemoglobin 11.3, and platelets 100,000 and roughly stable. D-dimer 3.61. Basic metabolic profile is otherwise unremarkable. Magnesium and phosphorous fall within the normal limits. Urinalysis is unremarkable. ASSESSMENT: 1. Acute hypoxic respiratory failure, improving. 2. Community-acquired pneumonia, severe. 3. Acute on chronic systolic heart failure. 4. Atrial flutter with variable conduction, currently rate controlled. 5. Demand ischemia. DISCUSSION AND PLAN: The patient is doing fine from respiratory standpoint. Her breathing is comfortable. From my perspective, she is stable for transition to the telemetry unit. Pulmonary Critical Care will continue to follow along while the patient remains inhouse for the time being. She will need a repeat chest x-ray in 6 weeks in the outpatient setting to verify resolution of her infiltrate. Job ID: [id number]
[2018-06-06] MEDS: Acetaminophen 325 MG TAB PO PRN (20:38)
[2018-06-07 06:37] LABS: Phosphorus 3.1 mg/dL (2.3-4.7)
[2018-06-07 06:47] LABS: Band 6 % (5-11); Hemoglobin 12.2 g/dL (12.0-16.0); Lymphocytes 24 % (21-51); MDiff Complete? YES; Mean Corpuscular HGB CONC 30.8 g/dL (32.0-36.0); Mean Corpuscular Hemoglobin 28.3 pg (27.0-31.0); Mean Corpuscular Volume 91.7 fL (78.0-98.0); Monocytes 11 % (0-10); Neutrophil 58 % (42-75); Platelet Count 128 thou/uL (130-400); RBC Distribution Width 13.1 % (11.5-14.5); Reactive Lymphocytes 1 % (0-10); Red Blood Cell (RBC) Count 4.31 mill/uL (4.20-5.40); White Blood Cell (WBC) Count 4.4 thou/uL (4.8-10.8)
[2018-06-07] MEDS: Apixaban 2.5 MG TAB PO SCH ×2 (09:12→20:41)
[2018-06-07] MEDS: Carvedilol 3.125 MG TAB PO SCH (09:13)
[2018-06-07] MEDS: Lisinopril 5 MG TAB PO SCH (09:14)
[2018-06-07] MEDS: Furosemide 20 MG TAB PO SCH ×2 (09:14→14:27)
--- NOTE | 2018-06-07 09:15 | PDOC.CTH ---
Cardiology Progress Note - Subjective The pt seen and examined. No overnight events. No cardiac complaints. She is more confused today. - Objective Vital Signs Temp Pulse Resp BP BP Pulse Ox 06/07/18 09:14 83 158/75 H 06/07/18 09:13 83 158/75 H 06/07/18 08:41 158/75 H 06/07/18 08:39 93 L 06/07/18 08:36 83 23 H 93 L 06/07/18 07:25 97.4 F L 06/07/18 03:53 97.6 F 06/07/18 00:19 85 23 H 94 L 06/06/18 23:45 97.5 F L Weight 138 lb 8 oz 06/06/18 06/07/18 06/08/18 06:59 06:59 06:59 Intake Total 660 1160 Balance 660 1160 - Physical Examination General/Neuro: other: (confused) Lungs: CTA (diminished at bases) Heart: other: (irregular) Abdomen: soft Extremities: other: (No edema) - Telemetry Telemetry Rhythm: Afib - Labs Result Diagrams: 06/07/18 05:33 06/06/18 04:42 Troponin/CKMB CK-MB (CK-2) 3.1 ng/mL (0-6.6) 06/01/18 13:16 Troponin I 0.537 ng/mL (< 0.028) H* 06/01/18 19:08 - Assessment/Plan 1. New onset Afib with RVR since 0700 on 06/05/2018 - Well controlled HR with Diltiazem PO 120mg qd; On Eliquis 2.5mg BID; cont. to monitor on tele 2. Acute on Chronic systolic HF - stable with Lasix 20mg PO BID, Lisinopril 5mg qd and Coreg 3.125mg BID, which increased to 6.25mg BID. 2. Rt PNA - managed by PCP/pulonologist. 3. HTN - increase Coreg from 3.125mg to 6.25mg BID. 4. DM type 2 - stable 5. Arthritis - 6. Dementia - MAR reviewed * EF 20-25%, mod LVH, mod ERV, mild dilated LA, mod MR, mod NV, mild-mod AR, and severe TR. * the pt is not a good candidate for a cardiac cath or an AICD due to dementia. Continue medical treatment. * From Cardiac standpoint, the pt is stable to tx to detention with stable VS after she receives PO Cardizem. The pt will f/u with Dr Alcaraz' office within 2-4 wks. * If she continues in Afib., consider amiodarone with the poor EF. Pt. seen and eval. by me. I agree with the A/P by the LADLE BUILDER.I spoke with the family today again. They understand that she will need to go to [facility] and then probably to a NH. she remains confused most of the time. Chest clear. No edema. Irreg/irreg. gjm Review of Systems - Review of Systems Constitutional: reports: no symptoms reported EENTM: reports: no symptoms reported Respiratory: reports: no symptoms reported Cardiac (ROS): reports: no symptoms reported ABD/GI: reports: no symptoms reported
[2018-06-07] MEDS ORDERED: Carvedilol 3.125 MG TAB PO SCH (10:00)
[2018-06-07] MEDS ORDERED: Magnesium 2 GM/50 ML 2 GM in Premix Bag 1 BAG IVPB SCH (13:00)
--- NOTE | 2018-06-07 13:40 | PRG ---
DATE OF SERVICE: 06/07/2018 SERVICE: Pulmonary Medicine. INTERVAL HISTORY: The patient is doing great from respiratory standpoint. Denies any current cough, fevers, or chills. She is a little somnolent this morning. Otherwise, there has been no interval change to her condition. PHYSICAL EXAMINATION: VITAL SIGNS: Afebrile, pulse 89, blood pressure 171/117, respirations 22, saturation 99% on room air. GENERAL: The patient is awake and alert, in no apparent distress. LUNGS: Decent air entry. Crackles are present on the right. There is no adventitious sounds on the left. HEART: Normal rate. Irregular. ABDOMEN: Soft, nontender, and nondistended. Bowel sounds are positive. MUSCULOSKELETAL: No cyanosis or clubbing. There is no pitting in the bilateral lower extremities. NEUROLOGIC: Grossly nonfocal. LABORATORY DATA: WBC 4.4, hemoglobin 12.2, platelets 128,000, and beautifully rebounding. Magnesium 1.6, phosphorus 3.1. ASSESSMENT: 1. Acute hypoxic respiratory failure. 2. Community-acquired pneumonia, severe. 3. Severe sepsis, resolving. 4. Ylmjl-mp-qcajmvw systolic heart failure. 5. Atrial flutter with variable conduction, currently rate controlled. 6. Demand ischemia. DISCUSSION AND PLAN: I will replace the patient's magnesium. From my a purely respiratory perspective, the patient is stable for transition out of the hospital. She will require repeat chest x-ray in 6 weeks to verify, if her right lower lobe infiltrate resolves. Pulmonary Critical Care will continue to follow, if she remains in-house. Job ID: [id number] [facility]
--- NOTE | 2018-06-07 14:13 | PRG ---
DATE OF SERVICE: 06/07/2018 SUBJECTIVE: The patient is seen and examined at the bedside. She has improved significantly. Her appetite is fair. OBJECTIVE: VITAL SIGNS: Blood pressure is 165/78, pulse is 79, respiratory rate is 25, O2 saturation is 96, and temperature is 98.3. HEENT: Her pupils are responding to light properly. Sclerae are nonicteric. Oral mucosa is moist. NECK: Supple. LUNGS: Bilateral rales with crackles present, but significantly improved, not much wheezing. HEART: S1 and S2, irregularly irregular. No S3. No S4. ABDOMEN: Soft, nontender. EXTREMITIES: 1 to 2+ peripheral edema, similar bilateral, nonpitting. NEUROLOGIC: She follows my simple commands, but she has some quite significant dementia. LABORATORY DATA: Labs showed white count of 4.4, hemoglobin 10.12, hematocrit 39.5, platelet count is 128,000. Chemistry, not done today. Glycemia is ranging from 164 to 243. Phosphorus 3.1 and magnesium 1.6. Chest x-ray showed improvement, but persistent infiltrates present. IMPRESSION: 1. Respiratory failure with hypoxemia, improving. 2. Community-acquired pneumonia. 3. Congestive heart failure with LVEF of 20% to 25%, acute on chronic. 4. Atrial fibrillation with RVR, improved. 5. ST-elevation myocardial infarction. 6. Hypophosphatemia, corrected. Continue her Eliquis. We will continue DuoNebs along with carvedilol, diltiazem, furosemide, lisinopril, and mild sliding scale for Humulin, Accu-Chek coverage. Continue PT. Job ID: [id number]
--- NOTE | 2018-06-07 14:22 | RAD ---
AP CHEST: History: Follow up infiltrate. Date: 06-07-18 Comparison: 06-01-18 FINDINGS: AP chest demonstrates cardiomegaly. EKG leads seen over the chest. Pulmonary vascular congestion is s een. Areas of airspace opacity seen in the both lungs, now more prominent in the right upper lobe. 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 IMPRESSION: 1. Cardiomegaly and pulmonary vascular congestion. There is increasing airspace opacity which has dev eloped in the right upper lobe. POS: [facility]
[2018-06-07] MEDS: Carvedilol 6.25 MG TAB PO SCH (17:21)
[2018-06-08] MEDS: hydrALAZINE 20 MG/ML VIAL SLOW IVP PRN (04:33)
[2018-06-08 05:50] LABS: Hemoglobin 12.8 g/dL (12.0-16.0); Platelet Count 144 thou/uL (130-400)
[2018-06-08 08:14] LABS: Actual Bicarbonate (HCO3a) 35.1 mEq/L (22-28); Base Excess (BEa) 9.2 mEq/L (-2.0 to +3.0); CO2 Tension 53.8 mmHg (35.0-45.0); Calcium, Ionized 1.19 mmol/L (1.12-1.30); Carboxyhemoglobin (COHb) 1.8 gm% (0.0-3.0); Hemoglobin (Hb) 12.4 g/dL (12.0-16.0); O2 Tension (PaO2) 79.7 mmHg (> 60.0); Potassium - ABG Lab 3.52 mmol/L (3.70-5.30); pH, Arterial 7.43 (7.35-7.45)
[2018-06-08 08:19] LABS: Puncture Site RBA
--- NOTE | 2018-06-08 08:31 | PDOC.CTH ---
Cardiology Progress Note - Subjective The pt seen and examined. Per RN, she is more confused and lethargic from last night. ABG was done this AM. - Objective Vital Signs Temp Pulse Resp BP Pulse Ox 06/08/18 08:21 96 06/08/18 08:17 100 33 H 96 06/08/18 07:26 97.4 F L 06/08/18 04:33 91 180/96 H 06/08/18 04:00 98.5 F 06/08/18 00:00 98.4 F 06/07/18 23:50 84 19 96 Weight 138 lb 6.4 oz 06/07/18 06/08/18 06/09/18 06:59 06:59 06:59 Intake Total 1160 605 Output Total 400 Balance 1160 205 - Physical Examination General/Neuro: other: (lethargic) Lungs: other: (coarses and diminished at bases) Heart: other: (irregular) Abdomen: soft Extremities: other: (No edema) - Telemetry Telemetry Rhythm: Afib - Labs Result Diagrams: 06/08/18 05:17 06/08/18 05:17 Troponin/CKMB CK-MB (CK-2) 3.1 ng/mL (0-6.6) 06/01/18 13:16 Troponin I 0.537 ng/mL (< 0.028) H* 06/01/18 19:08 - Assessment/Plan 1. New onset Afib with RVR since 0700 on 06/05/2018 - Well controlled HR with Diltiazem PO 120mg qd; On Eliquis 2.5mg BID; cont. to monitor on tele 2. Acute on Chronic systolic HF - stable with Lasix 20mg PO BID, Lisinopril 5mg qd and Coreg 6.25mg BID. 2. Rt PNA - managed by PCP/pulonologist. 3. HTN - hypertensive this AM possible 2/2 resp. distress? Cont. current med for now and adjust as needed. 4. DM type 2 - stable 5. Arthritis - 6. Dementia - MAR reviewed * EF 20-25%, mod LVH, mod ERV, mild dilated LA, mod MR, mod NE, mild-mod AR, and severe TR. * the pt is not a good candidate for a cardiac cath or an AICD due to dementia. Continue medical treatment. <addendum> Stopped Diltiazem and start Multaq 400mg BID. cont. monitoring on tele for QT prolongation. Pt. seen and eval. by me. She remains in Afib. She is confused. Sleeping most of the day. I agree with the A/P by the MICA SPREADER. if she can not afford the Multaq then I would start amiodarone. Review of Systems - Review of Systems Constitutional: reports: see HPI
--- NOTE | 2018-06-08 08:33 | PRG ---
DATE OF SERVICE: 06/08/2018 SUBJECTIVE: The patient is seen and examined at the bedside. She is still sleeping this morning. She is arousable, but her breathing is quite fast. She is struggling with her breathing now. OBJECTIVE: VITAL SIGNS: Respiratory rate is 24, blood pressure 168/78. HEENT: Sclerae are nonicteric. Oral mucosa is moist. LUNGS: Bilateral rales present at both bases. HEART: S1, S2. Irregularly irregular. No S3. No S4. ABDOMEN: Soft, nontender, nondistended. EXTREMITIES: 1 to 2+ peripheral edema, nonpitting. LABORATORY DATA: Hemoglobin 12.8, hematocrit 43.9, and platelet count is 144. Glucose 156, GFR estimated 86, creatinine 0.77. IMPRESSION: 1. Respiratory failure with hypoxemia, worse this morning. We will obtain ABGs. She has the telemetry bed transfer order in place, but I think we can await with this transfer since she is in more respiratory distress at this point. We are going to rule out hypoxemia. She is on 3 L of nasal cannula. 2. Community-acquired pneumonia, improved. 3. Congestive heart failure with LVEF of 20% to 25%, acute on chronic. 4. Atrial fibrillation with rapid ventricular response, improved. 5. ST-elevation myocardial infarction. 6. Hypophosphatemia, corrected. PLAN: Plan is to continue her Eliquis. Continue DuoNeb. Obtain ABGs. Continue Accu-Cheks. Her glycemia is relatively well controlled. Job ID: [id number]
--- NOTE | 2018-06-08 11:22 | PRG ---
DATE OF SERVICE: 06/08/2018 SERVICE: Pulmonary Medicine. INTERVAL HISTORY: The patient is doing fine from a respiratory standpoint. That being said, she is a little bit more somnolent today. She denies any current chest pain, fevers, chills, nausea, or vomiting. Otherwise, there has been no interval change to her condition. PHYSICAL EXAMINATION: VITAL SIGNS: Afebrile, pulse 96, blood pressure 142/96, respirations 18, and saturation 88% on 3 L nasal cannula. GENERAL: The patient is somnolent. She will wake up comfortably, but good drift off to sleep without stimulation after 5 seconds. HEENT: Normocephalic and atraumatic. Sclerae are white. Conjunctivae are pink. Oral mucosa is moist without lesions. LUNGS: Decent air entry. Rhonchi and crackles are both present. There is a prolonged expiratory phase, but no wheezing is appreciated. HEART: Normal rate, regular. ABDOMEN: Soft, nontender, and nondistended. Bowel sounds are positive. MUSCULOSKELETAL: No cyanosis or clubbing. There is no pitting in bilateral lower extremities. NEUROLOGIC: Grossly nonfocal. LABORATORY DATA: Hemoglobin 12.8. Creatinine 0.77. Urine culture is unremarkable. IMAGING DATA: Chest x-ray demonstrates improved opacifications in the right lower lobe. There is a right mid lung zone opacification, which is present. Cardiomegaly is noted obscuring anything it is in the left lower lobe. I do see some air bronchogram suggestive of possible infiltrate there. Pulmonary vascular congestion is once again noted. This is more pronounced in the left lung compared to the right. ASSESSMENT: 1. Acute Hypoxic respiratory failure. 2. Community-acquired pneumonia. 3. Severe sepsis. 4. Acute on chronic systolic heart failure. 5. Atrial flutter with variable conduction, currently rate controlled. 6. Demand ischemia. 7. Dementia with sedated delirium. DISCUSSION AND PLAN: We will continue our mobilization efforts. We will continue our antibiotics. Tomorrow will be day 7 and she will be able to discontinue them altogether. We will continue to diurese the patient until she returns to euvolemia. Currently, she is under fairly decent rate control. Pulmonary/Critical Care will continue to follow along for the time being. Ultimately, she will need a repeat chest x-ray in 6 weeks to make certain her infiltrates have resolved. Job ID: [id number] MTDD
[2018-06-08] MEDS: Lisinopril 5 MG TAB PO SCH (11:46)
[2018-06-08] MEDS: Carvedilol 6.25 MG TAB PO SCH ×2 (11:47→16:16)
[2018-06-08] MEDS: Apixaban 2.5 MG TAB PO SCH ×2 (11:48→20:37)
[2018-06-08] MEDS: Furosemide 40 MG TAB PO SCH (12:16)
[2018-06-08] MEDS: Furosemide 20 MG TAB PO SCH (12:24)
[2018-06-08] MEDS: Dronedarone HCl 400 MG TAB PO SCH (16:16)
[2018-06-09 05:01] LABS: Anion Gap 12 mmol/L (10-20); BUN (Urea Nitrogen) 16 mg/dL (9.8-20.1); Calc. Creatinine Clearance 55 mL/min (70-130); Calcium 8.8 mg/dL (7.8-10.44); Carbon Dioxide 31 mmol/L (23-31); Chloride 102 mmol/L (98-107); Estimated GFR-MDRD Greater than 90; Glucose 102 mg/dL (83-110); Magnesium 1.4 mg/dL (1.6-2.6); Potassium 3.7 mmol/L (3.5-5.1); Sodium 141 mmol/L (136-145)
[2018-06-09 05:04] LABS: Band 9 % (5-11); Hemoglobin 11.6 g/dL (12.0-16.0); Lymphocytes 12 % (21-51); MDiff Complete? YES; Mean Corpuscular HGB CONC 32.3 g/dL (32.0-36.0); Mean Corpuscular Hemoglobin 28.7 pg (27.0-31.0); Mean Corpuscular Volume 88.6 fL (78.0-98.0); Mean Platelet Volume 9.8 fL (7.4-10.4); Monocytes 13 % (0-10); Neutrophil 64 % (42-75); Phosphorus 2.6 mg/dL (2.3-4.7); Platelet Count 135 thou/uL (130-400); Platelet Morphology Comment Appears Adequate; RBC Morphology Normal; Reactive Lymphocytes 2 % (0-10); Red Blood Cell (RBC) Count 4.04 mill/uL (4.20-5.40); White Blood Cell (WBC) Count 5.8 thou/uL (4.8-10.8)
--- NOTE | 2018-06-09 08:43 | PDOC.CTH ---
Cardiology Progress Note - Objective Vital Signs Temp Pulse Resp Pulse Ox 06/09/18 07:19 95 06/09/18 07:04 98.4 F 06/09/18 04:00 97.8 F 06/09/18 00:00 98.0 F 06/08/18 23:20 80 12 98 Weight 139 lb 11.2 oz 06/08/18 06/09/18 06/10/18 06:59 06:59 07:59 Intake Total 605 340 Output Total 400 425 Balance 205 -85 - Labs Result Diagrams: 06/09/18 04:41 06/09/18 04:41 Troponin/CKMB CK-MB (CK-2) 3.1 ng/mL (0-6.6) 06/01/18 13:16 Troponin I 0.537 ng/mL (< 0.028) H* 06/01/18 19:08 - Assessment/Plan New onset afib with RVR, now rate controlled Ischemic CM (20-25%) Pneumonia HTN DM Dementia Started on multaq per Jerzy On ACT Not felt to be a good ICD candidate per Jerzy Increase coreg for better rate control and BP control
[2018-06-09] MEDS: Dronedarone HCl 400 MG TAB PO SCH ×2 (10:23→16:53)
[2018-06-09] MEDS: Acetaminophen 325 MG TAB PO PRN (10:23)
[2018-06-09] MEDS: Furosemide 40 MG TAB PO SCH ×2 (10:24→16:53)
[2018-06-09] MEDS: Carvedilol 6.25 MG TAB PO SCH ×3 (10:24→20:57)
[2018-06-09] MEDS: Lisinopril 5 MG TAB PO SCH (10:26)
[2018-06-09] MEDS: Apixaban 2.5 MG TAB PO SCH ×2 (10:26→20:58)
--- NOTE | 2018-06-09 10:45 | PRG ---
DATE OF SERVICE: 06/09/2018 SUBJECTIVE: This morning, the patient is awake, alert, and responsive. Denies any distress, pain, or discomfort. OBJECTIVE: VITAL SIGNS: O2 saturation is 97% on 2 L, pulse is 80, blood pressure 130/80; and respiratory rate 18. CHEST: Decreased breath sounds. No wheezing. CARDIAC: Normal S1, S2. No gallops or masses. IMPRESSION: Respiratory failure, congestive heart failure, and atrial fibrillation. PLAN: She can probably be transferred out of the MICU. Continue nga Rubio treatment. Initiate low-dose steroids. Job ID: [id number]
--- NOTE | 2018-06-09 11:39 | PDOC.PN ---
- Subjective Encounter Start Date: 06/09/18 Encounter Start Time: 11:38 Subjective: Seen and examined - Objective Resuscitation Status - Order Detail: 06/01/18 19:44 Resuscitation Status Routine Resuscitation Status: FULL: Full Resuscitation Vital Signs & Weight: Vital Signs (12 hours) Temp Pulse Resp BP Pulse Ox 06/09/18 11:24 97.3 F L 06/09/18 10:24 168/97 H 06/09/18 08:48 99 06/09/18 08:46 93 20 06/09/18 07:19 95 06/09/18 07:04 98.4 F 06/09/18 04:00 97.8 F 06/09/18 00:00 98.0 F Weight Weight 139 lb 11.2 oz Most Recent Monitor Data Heart Rate from ECG 97 NIBP 166/93 NIBP BP-Mean 117 Respiration from ECG 15 SpO2 93 I&O: 06/08/18 06/09/18 06/10/18 06:59 06:59 07:59 Intake Total 605 340 Output Total 400 425 Balance 205 -85 Result Diagrams: 06/09/18 04:41 06/09/18 04:41 Additional Labs: Accuchecks 06/09/18 06/09/18 06/08/18 10:37 06:05 20:01 POC Glucose 87 135 H 107 06/08/18 16:33 POC Glucose 104 Phys Exam - Physical Examination Constitutional: NAD HEENT: PERRLA, moist MMs, sclera anicteric, TM's clear Neck: no nodes, no JVD, supple, full ROM Respiratory: no wheezing, no rales, clear to auscultation bilateral Cardiovascular: no significant murmur, no rub, irregular Gastrointestinal: soft, non-tender, no distention, positive bowel sounds Musculoskeletal: pulses present Dx/Plan (1) Afib Code(s): I48.91 - UNSPECIFIED ATRIAL FIBRILLATION Status: Acute (2) CHF (congestive heart failure) Code(s): I50.9 - HEART FAILURE, UNSPECIFIED Status: Acute (3) Pneumonia Code(s): J18.9 - PNEUMONIA, UNSPECIFIED ORGANISM Status: Acute (4) Respiratory failure Code(s): J96.90 - RESPIRATORY FAILURE, UNSP, UNSP W HYPOXIA OR HYPERCAPNIA Status: Acute - Plan continue antibiotics, PT/OT, older adult social work specialist, respiratory therapy Started on low dose steroids per pulmonary -: Multaq initiated by cardiology -: Transfer to Tele soon * .
--- NOTE | 2018-06-09 23:03 | EKG ---
Test Reason : Blood Pressure : / mmHG Vent. Rate : 074 BPM Atrial Rate : 074 BPM P-R Int : 178 ms QRS Dur : 096 ms QT Int : 406 ms P-R-T Axes : 081 067 -27 degrees QTc Int : 450 ms Normal sinus rhythm Minimal voltage criteria for LVH, may be normal variant Confirmed by CONNIE NGUYEN ([id number]), editor index HANNAH SPENCER ([id number] on 06/09/2018 11:03:42 PM Referred By: Confirmed By:CONNIE NGUYEN
[2018-06-10 05:23] LABS: #Monocytes 0.3 thou/uL (0.11-0.59); %Basophils 0.2 % (0.0-1.0); %Eosinophils 0.5 % (0.0-10.0); %Lymphocytes 15.5 % (21.0-51.0); %Monocytes 4.4 % (0.0-10.0); %Neutrophils 79.3 % (42.0-75.0); Hemoglobin 11.3 g/dL (12.0-16.0); Mean Corpuscular HGB CONC 30.4 g/dL (32.0-36.0); Mean Corpuscular Hemoglobin 27.8 pg (27.0-31.0); Mean Corpuscular Volume 91.6 fL (78.0-98.0); Mean Platelet Volume 10.2 fL (7.4-10.4); Platelet Count 149 thou/uL (130-400); Red Blood Cell (RBC) Count 4.05 mill/uL (4.20-5.40); White Blood Cell (WBC) Count 6.4 thou/uL (4.8-10.8)
[2018-06-10 05:53] LABS: Anion Gap 11 mmol/L (10-20); BUN (Urea Nitrogen) 14 mg/dL (9.8-20.1); Calc. Creatinine Clearance 53 mL/min (70-130); Calcium 8.8 mg/dL (7.8-10.44); Carbon Dioxide 34 mmol/L (23-31); Chloride 101 mmol/L (98-107); Estimated GFR-MDRD 87; Glucose 104 mg/dL (83-110); Magnesium 1.5 mg/dL (1.6-2.6); Potassium 3.5 mmol/L (3.5-5.1); Sodium 142 mmol/L (136-145)
[2018-06-10 06:00] LABS: Phosphorus 3.3 mg/dL (2.3-4.7)
--- NOTE | 2018-06-10 08:56 | PDOC.CTH ---
Cardiology Progress Note - Subjective No complaints - Objective Vital Signs Temp BP BP Pulse Ox 06/10/18 08:00 166/85 H 93 L 06/10/18 07:17 97.1 F L 06/10/18 04:00 97.3 F L 06/10/18 00:00 97.4 F L 06/09/18 20:57 143/83 H 06/09/18 20:00 143/83 H 94 L Weight 139 lb 8 oz 06/09/18 06/10/18 06/11/18 05:59 06:59 06:59 Intake Total Output Total Balance - Physical Examination General/Neuro: NAD Neck: carotid US brisk, no JVD present Lungs: CTA, unlabored respirations Heart: PMI normal, RRR Abdomen: NT/ND, soft Extremities: + edema B - Labs Result Diagrams: 06/10/18 05:05 06/10/18 05:05 Troponin/CKMB CK-MB (CK-2) 3.1 ng/mL (0-6.6) 06/01/18 13:16 Troponin I 0.537 ng/mL (< 0.028) H* 06/01/18 19:08 - Assessment/Plan New onset afib with RVR, now rate controlled Ischemic CM (20-25%) Pneumonia HTN DM Dementia Continue current treatment; pt on mutlaq BP mildly elevated; continue to monitor No a candidate for ICD Abx
[2018-06-10] MEDS: Furosemide 40 MG TAB PO SCH ×2 (09:34→14:26)
[2018-06-10] MEDS: Lisinopril 5 MG TAB PO SCH (09:35)
[2018-06-10] MEDS: Dronedarone HCl 400 MG TAB PO SCH ×2 (09:35→17:00)
[2018-06-10] MEDS: predniSONE 20 MG TAB PO SCH (09:35)
[2018-06-10] MEDS: Carvedilol 6.25 MG TAB PO SCH ×3 (09:36→21:12)
[2018-06-10] MEDS: Apixaban 2.5 MG TAB PO SCH ×2 (09:36→21:12)
--- NOTE | 2018-06-10 11:13 | PDOC.PN ---
- Subjective Encounter Start Date: 06/10/18 Encounter Start Time: 11:12 Patient seen and examined. No new complaints. No overnight events. - Objective Resuscitation Status - Order Detail: 06/01/18 19:44 Resuscitation Status Routine Resuscitation Status: FULL: Full Resuscitation MAR Reviewed: Yes Vital Signs & Weight: Vital Signs (12 hours) Temp Pulse BP BP Pulse Ox 06/10/18 09:36 162/99 H 06/10/18 09:35 85 162/99 H 06/10/18 09:23 92 L 06/10/18 08:00 166/85 H 93 L 06/10/18 07:17 97.1 F L 06/10/18 04:00 97.3 F L 06/10/18 00:00 97.4 F L Weight Weight 139 lb 8 oz Most Recent Monitor Data Heart Rate from ECG 85 NIBP 166/85 NIBP BP-Mean 131 Respiration from ECG 23 SpO2 95 I&O: 06/09/18 06/10/18 06/11/18 05:59 06:59 06:59 Intake Total Output Total Balance Result Diagrams: 06/10/18 05:05 06/10/18 05:05 Additional Labs: Accuchecks 06/10/18 06/10/18 06/09/18 08:29 06:15 19:56 POC Glucose 96 107 121 H 06/09/18 06/09/18 16:37 10:37 POC Glucose 117 H 87 Phys Exam - Physical Examination Constitutional: NAD HEENT: sclera anicteric Neck: supple Respiratory: no wheezing, no rales Cardiovascular: irregular Gastrointestinal: soft Musculoskeletal: no edema Neurological: non-focal Psychiatric: normal affect Deviation from normal: awake and alert Skin: no rash Dx/Plan (1) Afib Code(s): I48.91 - UNSPECIFIED ATRIAL FIBRILLATION Status: Acute (2) CHF (congestive heart failure) Code(s): I50.9 - HEART FAILURE, UNSPECIFIED Status: Acute (3) Pneumonia Code(s): J18.9 - PNEUMONIA, UNSPECIFIED ORGANISM Status: Acute (4) Respiratory failure Code(s): J96.90 - RESPIRATORY FAILURE, UNSP, UNSP W HYPOXIA OR HYPERCAPNIA Status: Acute - Plan cont current plan of care, plan discussed w/ family, PT/OT, health care social worker, respiratory therapy * . on multaq,eliquis and coreg on steroids per pulmonology AM labs Transfer to Tele PT eval and treat CM consult for placement
--- NOTE | 2018-06-10 11:23 | PRG ---
DATE OF SERVICE: 06/10/2018 SUBJECTIVE: This morning, she is better, less short of breath, less cough, less wheezing. OBJECTIVE: VITAL SIGNS: Blood pressure 162/99, pulse 75, sats 92% on room air, respiratory rate 18. CHEST: Decreased breath sounds. No wheezing. CARDIAC: Normal S1, S2. No gallops. ABDOMEN: No masses. IMPRESSION: 1. Respiratory failure. 2. Congestive heart failure. 3. Atrial fibrillation. She is stable enough to be transferred out of the MICU. Continue antibiotics, neb treatment. Job ID: [id number]
[2018-06-10] MEDS: Acetaminophen 325 MG TAB PO PRN (14:25)
[2018-06-11] MEDS: hydrALAZINE 20 MG/ML VIAL SLOW IVP PRN (06:05)
[2018-06-11 08:10] LABS: #Lymphocytes 1.2 thou/uL (1.20-3.40); #Monocytes 0.4 thou/uL (0.11-0.59); #Neutrophils 5.9 thou/uL (1.40-6.50); %Basophils 0.1 % (0.0-1.0); %Eosinophils 0.5 % (0.0-10.0); %Lymphocytes 16.5 % (21.0-51.0); %Monocytes 4.9 % (0.0-10.0); %Neutrophils 78.1 % (42.0-75.0); Hemoglobin 11.3 g/dL (12.0-16.0); Mean Corpuscular HGB CONC 30.3 g/dL (32.0-36.0); Mean Corpuscular Hemoglobin 27.1 pg (27.0-31.0); Mean Corpuscular Volume 89.6 fL (78.0-98.0); Mean Platelet Volume 9.8 fL (7.4-10.4); Platelet Count 207 thou/uL (130-400); RBC Distribution Width 13.3 % (11.5-14.5); Red Blood Cell (RBC) Count 4.18 mill/uL (4.20-5.40); White Blood Cell (WBC) Count 7.5 thou/uL (4.8-10.8)
[2018-06-11 08:20] LABS: Phosphorus 3.3 mg/dL (2.3-4.7)
[2018-06-11 08:21] LABS: Anion Gap 15 mmol/L (10-20); BUN (Urea Nitrogen) 19 mg/dL (9.8-20.1); Calc. Creatinine Clearance 40 mL/min (70-130); Calcium 9.1 mg/dL (7.8-10.44); Carbon Dioxide 32 mmol/L (23-31); Chloride 102 mmol/L (98-107); Estimated GFR-MDRD 67; Glucose 115 mg/dL (83-110); Magnesium 1.6 mg/dL (1.6-2.6); Potassium 3.6 mmol/L (3.5-5.1); Sodium 145 mmol/L (136-145)
[2018-06-11] MEDS: predniSONE 20 MG TAB PO SCH (08:57)
[2018-06-11] MEDS: Apixaban 2.5 MG TAB PO SCH ×2 (08:57→21:38)
[2018-06-11] MEDS: Lisinopril 5 MG TAB PO SCH (08:57)
[2018-06-11] MEDS: Furosemide 40 MG TAB PO SCH ×2 (08:57→13:54)
[2018-06-11] MEDS: Dronedarone HCl 400 MG TAB PO SCH ×2 (08:57→16:26)
[2018-06-11] MEDS: Carvedilol 6.25 MG TAB PO SCH ×3 (08:57→21:33)
[2018-06-11] MEDS ORDERED: Amlodipine 5 MG TAB PO SCH (09:45)
[2018-06-11] MEDS: Acetaminophen 325 MG TAB PO PRN (12:12)
--- NOTE | 2018-06-11 15:20 | PDOC.PN ---
- Subjective Encounter Start Date: 06/11/18 Encounter Start Time: 03:00 Subjective: PATIENT C/O SOB AND WEAKNESS - Objective Resuscitation Status - Order Detail: 06/01/18 19:44 Resuscitation Status Routine Resuscitation Status: FULL: Full Resuscitation MAR Reviewed: Yes Vital Signs & Weight: Vital Signs (12 hours) Temp Pulse Resp BP BP Pulse Ox 06/11/18 14:12 91 26 H 06/11/18 13:54 153/76 H 06/11/18 11:30 98.2 F 06/11/18 10:32 166/78 H 06/11/18 09:47 103 H 173/74 H 06/11/18 08:57 103 H 173/74 H 06/11/18 08:00 94 L 06/11/18 07:50 106 H 17 92 L 06/11/18 07:20 98.4 F 06/11/18 06:05 92 182/90 H 06/11/18 03:52 98.2 F Weight Weight 132 lb 8 oz Most Recent Monitor Data Heart Rate from ECG 89 NIBP 136/100 NIBP BP-Mean 112 Respiration from ECG 30 SpO2 98 I&O: 06/10/18 06/11/18 06/12/18 06:59 06:59 06:59 Intake Total 210 Output Total 250 Balance -40 Result Diagrams: 06/11/18 07:42 06/11/18 07:42 Additional Labs: Accuchecks 06/11/18 06/11/18 06/10/18 10:40 05:33 20:05 POC Glucose 115 H 105 159 H 06/10/18 17:06 POC Glucose 151 H Phys Exam - Physical Examination HEENT: moist MMs Neck: no nodes, no JVD Respiratory: no wheezing, no rales Cardiovascular: no significant murmur, no rub Gastrointestinal: soft, non-tender, no distention, positive bowel sounds Musculoskeletal: no edema Neurological: non-focal, normal sensation Lymphatic: no nodes Psychiatric: normal affect, A&O x 3 Skin: no rash Dx/Plan (1) Afib Code(s): I48.91 - UNSPECIFIED ATRIAL FIBRILLATION Status: Acute (2) CHF (congestive heart failure) Code(s): I50.9 - HEART FAILURE, UNSPECIFIED Status: Acute (3) Pneumonia Code(s): J18.9 - PNEUMONIA, UNSPECIFIED ORGANISM Status: Acute (4) Respiratory failure Code(s): J96.90 - RESPIRATORY FAILURE, UNSP, UNSP W HYPOXIA OR HYPERCAPNIA Status: Acute - Plan PT/OT, social insurance analyst, out of bed/ambulate 1.PLAN OF CARE POSSIBLE DISCHARGE TO SNF * .
--- NOTE | 2018-06-11 16:40 | PRG ---
DATE OF SERVICE: 06/11/2018 SUBJECTIVE: Rosaura Galindo is stable overnight. Her only complaints were feeling weak when I rounded on her. OBJECTIVE: VITAL SIGNS: Heart rates in the 90s. She is afebrile. Respiratory rate 20s, blood pressure 136/100. LUNGS: Clear. HEART: Regular rhythm. S1 and S2 normal. ABDOMEN: Soft and nontender. EXTREMITIES: Without edema. IMPRESSION: 1. Congestive heart failure, improved. 2. Atrial fibrillation. 3. Bronchitis ?early pneumonia. She appears to be stable at this time. Job ID: [id number]
--- NOTE | 2018-06-11 20:34 | PDOC.CTH ---
Cardiology Progress Note - Subjective The pt seen and examined. Per RN, she is more confused and lethargic from last night. - Objective Vital Signs Temp Pulse Pulse Resp BP BP BP 06/11/18 19:52 98.5 F 06/11/18 18:33 06/11/18 18:32 06/11/18 16:00 98.6 F 06/11/18 14:12 91 26 H 06/11/18 13:54 153/76 H 06/11/18 12:15 96 120/50 L 113/49 L 06/11/18 11:30 98.2 F 06/11/18 10:32 06/11/18 09:47 103 H 173/74 H 06/11/18 08:57 103 H 173/74 H BP BP Pulse Ox 06/11/18 19:52 06/11/18 18:33 93 L 06/11/18 18:32 93 L 06/11/18 16:00 06/11/18 14:12 06/11/18 13:54 06/11/18 12:15 97/75 06/11/18 11:30 06/11/18 10:32 166/78 H 06/11/18 09:47 06/11/18 08:57 Weight 132 lb 8 oz 06/10/18 06/11/18 06/12/18 06:59 06:59 06:59 Intake Total 210 250 Output Total 250 Balance -40 250 - Physical Examination General/Neuro: other: (confused) Lungs: other: (diminished at bases) Heart: other: (irregular) Abdomen: soft Extremities: other: (No edema) - Telemetry Telemetry Rhythm: Afib - Labs Result Diagrams: 06/13/18 04:58 06/13/18 04:58 Troponin/CKMB CK-MB (CK-2) 3.1 ng/mL (0-6.6) 06/01/18 13:16 Troponin I 0.537 ng/mL (< 0.028) H* 06/01/18 19:08 - Assessment/Plan 1. New onset Afib with RVR since 0700 on 06/05/2018 - Well controlled HR with multaq 400mg BID; On Eliquis 2.5mg BID; cont. to monitor on tele 2. Acute on Chronic systolic HF - stable with Lasix 40mg PO BID, Lisinopril 5mg qd and Coreg 6.25mg TID. 2. Rt PNA - managed by PCP/pulonologist. 3. HTN - Start Norvasc 5mg qd from today. 4. DM type 2 - stable 5. Arthritis - 6. Dementia - more confused this AM. MAR reviewed * EF 20-25%, mod LVH, mod ERV, mild dilated LA, mod MR, mod CO, mild-mod AR, and severe TR. * the pt is not a good candidate for a cardiac cath or an AICD due to dementia. Continue medical treatment. * If she cannot afford Multaq, will change to Amiodarone. Pt. seen and eval. by me. I agree with the A/P by the ICE CRUSHER. She remains is A-fib. but the rate is controlled. Chest clear. Irreg,irreg. gjm Review of Systems - Review of Systems Constitutional: reports: see HPI
[2018-06-12 05:54] LABS: #Lymphocytes 1.4 thou/uL (1.20-3.40); #Monocytes 0.8 thou/uL (0.11-0.59); #Neutrophils 6.2 thou/uL (1.40-6.50); %Basophils 0.4 % (0.0-1.0); %Eosinophils 0.3 % (0.0-10.0); %Lymphocytes 16.3 % (21.0-51.0); %Monocytes 9.3 % (0.0-10.0); %Neutrophils 73.6 % (42.0-75.0); Hemoglobin 10.8 g/dL (12.0-16.0); Mean Corpuscular HGB CONC 29.4 g/dL (32.0-36.0); Mean Corpuscular Hemoglobin 26.3 pg (27.0-31.0); Mean Corpuscular Volume 89.5 fL (78.0-98.0); Mean Platelet Volume 9.3 fL (7.4-10.4); Platelet Count 207 thou/uL (130-400); RBC Distribution Width 13.4 % (11.5-14.5); Red Blood Cell (RBC) Count 4.09 mill/uL (4.20-5.40); White Blood Cell (WBC) Count 8.4 thou/uL (4.8-10.8)
[2018-06-12 06:06] LABS: Phosphorus 3.7 mg/dL (2.3-4.7)
[2018-06-12 06:09] LABS: Anion Gap 12 mmol/L (10-20); BUN (Urea Nitrogen) 26 mg/dL (9.8-20.1); Calc. Creatinine Clearance 31 mL/min (70-130); Calcium 9.2 mg/dL (7.8-10.44); Carbon Dioxide 35 mmol/L (23-31); Chloride 102 mmol/L (98-107); Estimated GFR-MDRD 49; Glucose 108 mg/dL (83-110); Magnesium 1.6 mg/dL (1.6-2.6); Potassium 3.6 mmol/L (3.5-5.1); Sodium 145 mmol/L (136-145)
[2018-06-12] MEDS: Carvedilol 6.25 MG TAB PO SCH ×3 (09:48→20:26)
[2018-06-12] MEDS: Furosemide 40 MG TAB PO SCH ×2 (09:49→14:26)
[2018-06-12] MEDS: Amlodipine 5 MG TAB PO SCH (09:49)
[2018-06-12] MEDS: Lisinopril 5 MG TAB PO SCH (09:49)
[2018-06-12] MEDS: predniSONE 20 MG TAB PO SCH (09:50)
[2018-06-12] MEDS: Apixaban 2.5 MG TAB PO SCH ×2 (09:50→20:26)
[2018-06-12] MEDS: Dronedarone HCl 400 MG TAB PO SCH ×2 (09:50→17:15)
[2018-06-12] MEDS: Acetaminophen 325 MG TAB PO PRN (09:50)
[2018-06-12 13:21] VITALS: BMI 22.6
--- NOTE | 2018-06-12 14:52 | PDOC.PN ---
- Subjective Encounter Start Date: 06/12/18 Encounter Start Time: 13:00 Subjective: Sob with weakness - Objective Resuscitation Status - Order Detail: 06/01/18 19:44 Resuscitation Status Routine Resuscitation Status: FULL: Full Resuscitation MAR Reviewed: Yes Vital Signs & Weight: Vital Signs (12 hours) Temp Pulse Pulse Resp BP BP BP 06/12/18 14:26 121/73 06/12/18 13:54 89 22 H 06/12/18 12:55 06/12/18 11:48 88 133/77 06/12/18 11:10 98.6 F 06/12/18 10:03 140/86 06/12/18 09:49 99 150/100 H 06/12/18 09:48 150/100 H 06/12/18 07:35 91 21 H 06/12/18 07:17 98.3 F 06/12/18 04:00 98.4 F Pulse Ox 06/12/18 14:26 06/12/18 13:54 95 06/12/18 12:55 87 L 06/12/18 11:48 06/12/18 11:10 06/12/18 10:03 94 L 06/12/18 09:49 06/12/18 09:48 06/12/18 07:35 06/12/18 07:17 06/12/18 04:00 Weight Admit Weight 143 lb 4.807 oz Weight 132 lb 3.2 oz Most Recent Monitor Data Heart Rate from ECG 80 NIBP 121/73 NIBP BP-Mean 89 Respiration from ECG 24 SpO2 98 I&O: 06/11/18 06/12/18 06/13/18 06:59 06:59 06:59 Intake Total 210 250 Output Total 250 Balance -40 250 Result Diagrams: 06/12/18 05:29 06/12/18 05:29 Additional Labs: Accuchecks 06/12/18 06/12/18 06/11/18 10:43 05:41 20:35 POC Glucose 111 H 116 H 172 H 06/11/18 16:42 POC Glucose 191 H Phys Exam - Physical Examination HEENT: moist MMs Neck: no JVD, supple Respiratory: no wheezing, no rales some basal crepts b/l Cardiovascular: no significant murmur Gastrointestinal: soft, non-tender, no distention Musculoskeletal: no edema, pulses present Neurological: normal sensation, moves all 4 limbs Psychiatric: normal affect, A&O x 3 Skin: no rash Dx/Plan (1) Afib Code(s): I48.91 - UNSPECIFIED ATRIAL FIBRILLATION Status: Acute Qualifiers: Atrial fibrillation type: persistent Qualified Code(s): I48.1 - Persistent atrial fibrillation (2) CHF (congestive heart failure) Code(s): I50.9 - HEART FAILURE, UNSPECIFIED Status: Acute Qualifiers: Heart failure type: systolic Heart failure chronicity: acute on chronic Qualified Code(s): I50.23 - Acute on chronic systolic (congestive) heart failure Plan: Per cardiology no plan for AICD or cardiac cath evaluation due to dementia (3) Pneumonia Code(s): J18.9 - PNEUMONIA, UNSPECIFIED ORGANISM Status: Resolved Qualifiers: Pneumonia type: due to unspecified organism Laterality: unspecified laterality Plan: To discontue antibiotics from 06/14/2018 (4) Respiratory failure Code(s): J96.90 - RESPIRATORY FAILURE, UNSP, UNSP W HYPOXIA OR HYPERCAPNIA Status: Resolved Qualifiers: Chronicity: acute on chronic Respiratory failure complication: hypoxia Qualified Code(s): J96.21 - Acute and chronic respiratory failure with hypoxia - Plan PT/OT, out of bed/ambulate 1.Appreciate cardiology and pulmonary reccs. -: 2.Transfer to [place] floor in am. -: 3.Discontinue antibiotics from 06/14/2018 for pneumonia. * .
--- NOTE | 2018-06-12 17:21 | PRG ---
DATE OF SERVICE: 06/12/2018 SUBJECTIVE: Rosaura Galindo is about the same. She is lucid at times and not as lucid at other times. She is cooperative and pleasant. OBJECTIVE: VITAL SIGNS: She is afebrile. Blood pressure 120/73, heart rate is 89, respiratory rate is 22, oximetry is 95% on 2 L. LUNGS: Distant and clear. HEART: Regular rhythm. ABDOMEN: Soft. IMPRESSION: 1. Congestive heart failure, stable. 2. Atrial fibrillation. 3. Bronchitis. 4. ? Early pneumonia. I see no reason for her to remain in the hospital. She is scheduled to go to [facility] some point. Required prognosis, short-term is quite poor in my opinion and I suspect with her cardiomyopathy, atrial fibrillation, and her other medical issues (most pertinent of which is her dementia and her lack of p.o. intake), I do not feel that she will do well over here over even the next month. She is probably as stable as she will ever be at this point. Job ID: [id number]
--- NOTE | 2018-06-12 17:26 | PDOC.CTH ---
Cardiology Progress Note - Subjective The pt seen and examined. No overnight events. The pt is very confused and lethergic. - Objective Vital Signs Temp Pulse Pulse Resp BP BP BP 06/12/18 15:24 99.0 F 06/12/18 14:26 121/73 06/12/18 13:54 89 22 H 06/12/18 12:55 06/12/18 11:48 88 133/77 06/12/18 11:10 98.6 F 06/12/18 10:03 140/86 06/12/18 09:49 99 150/100 H 06/12/18 09:48 150/100 H 06/12/18 07:35 91 21 H 06/12/18 07:17 98.3 F Pulse Ox 06/12/18 15:24 06/12/18 14:26 06/12/18 13:54 95 06/12/18 12:55 87 L 06/12/18 11:48 06/12/18 11:10 06/12/18 10:03 94 L 06/12/18 09:49 06/12/18 09:48 06/12/18 07:35 06/12/18 07:17 Admit Weight 143 lb 4.807 oz Weight 132 lb 3.2 oz 06/11/18 06/12/18 06/13/18 06:59 06:59 06:59 Intake Total 210 250 210 Output Total 250 Balance -40 250 210 - Physical Examination General/Neuro: other: (confused) Lungs: CTA Heart: other: (irregular) Abdomen: soft Extremities: other: (No edema) - Telemetry Telemetry Rhythm: Afib - Labs Result Diagrams: 06/13/18 04:58 06/13/18 04:58 Troponin/CKMB CK-MB (CK-2) 3.1 ng/mL (0-6.6) 06/01/18 13:16 Troponin I 0.537 ng/mL (< 0.028) H* 06/01/18 19:08 - Assessment/Plan 1. New onset Afib with RVR since 0700 on 06/05/2018 - Well controlled HR with multaq 400mg BID; On Eliquis 2.5mg BID; cont. to monitor on tele 2. Acute on Chronic systolic HF - stable with Lasix 40mg PO BID, Lisinopril 5mg qd and Coreg 6.25mg TID. 2. Rt PNA - managed by PCP/pulonologist. 3. HTN - Start Norvasc 5mg qd from today. 4. DM type 2 - stable 5. Arthritis - 6. Dementia - more confused this AM. MAR reviewed * EF 20-25%, mod LVH, mod ERV, mild dilated LA, mod MR, mod IN, mild-mod AR, and severe TR. * the pt is not a good candidate for a cardiac cath or an AICD due to dementia. Continue medical treatment. * If she cannot afford Multaq, will change to Amiodarone. * From cardiac standpoint, the pt is stable to tx to rehab. Pt. seen and eval. by me. I agree with the A/P by the VAT WASHER. The cardiac status is stable with rate controlled A-fib. Continue present meds. I will sign off. lv Review of Systems - Review of Systems Constitutional: reports: no symptoms reported, see HPI
[2018-06-12 20:35] VITALS: BP 117/73
[2018-06-13 05:15] LABS: #Lymphocytes 1.5 thou/uL (1.20-3.40); #Monocytes 0.9 thou/uL (0.11-0.59); #Neutrophils 5.9 thou/uL (1.40-6.50); %Basophils 0.4 % (0.0-1.0); %Eosinophils 0.2 % (0.0-10.0); %Lymphocytes 17.9 % (21.0-51.0); %Monocytes 10.7 % (0.0-10.0); %Neutrophils 70.8 % (42.0-75.0); Hemoglobin 10.7 g/dL (12.0-16.0); Mean Corpuscular HGB CONC 30.4 g/dL (32.0-36.0); Mean Corpuscular Hemoglobin 27.3 pg (27.0-31.0); Mean Corpuscular Volume 90.1 fL (78.0-98.0); Mean Platelet Volume 9.4 fL (7.4-10.4); Platelet Count 195 thou/uL (130-400); RBC Distribution Width 13.5 % (11.5-14.5); Red Blood Cell (RBC) Count 3.91 mill/uL (4.20-5.40); White Blood Cell (WBC) Count 8.3 thou/uL (4.8-10.8)
[2018-06-13 05:27] LABS: ALT (SGPT) 43 U/L (8-55); AST (SGOT) 32 U/L (5-34); Albumin 2.9 g/dL (3.4-4.8); Alkaline Phosphatase 43 U/L (40-150); Anion Gap 13 mmol/L (10-20); BUN (Urea Nitrogen) 30 mg/dL (9.8-20.1); Bilirubin, Total 1.8 mg/dL (0.2-1.2); Calc. Creatinine Clearance 29 mL/min (70-130); Calcium 9.1 mg/dL (7.8-10.44); Carbon Dioxide 33 mmol/L (23-31); Chloride 104 mmol/L (98-107); Estimated GFR-MDRD 46; Globulin 2.7 g/dL (2.4-3.5); Glucose 98 mg/dL (83-110); Magnesium 1.6 mg/dL (1.6-2.6); Phosphorus 3.7 mg/dL (2.3-4.7); Potassium 3.5 mmol/L (3.5-5.1); Protein, Total 5.6 g/dL (6.0-8.3); Sodium 146 mmol/L (136-145)
[2018-06-13] MEDS ORDERED: Megestrol Acetate 800 MG/20 ML UDCUP PO SCH (09:00)
--- NOTE | 2018-06-13 09:09 | PRG ---
DATE OF SERVICE: 06/13/2018 SUBJECTIVE: The patient is seen and examined at the bedside. She is not eating much. She is approved for the group home facility at the [facility] as soon as she is ready to go. OBJECTIVE: VITAL SIGNS: Blood pressure is 147/76, pulse is 86, temperature is 97.4, respiratory rate is 19, O2 saturation is 100%. GENERAL: She is able to communicate with me, but she is showing significant dementia, although she follows my commands. HEENT: Conjunctivae pinkish. Oral mucosa is moist. NECK: Supple. LUNGS: Few crackles bilaterally at both bases. HEART: S1 and S2, irregularly irregular. No S3. No S4. ABDOMEN: Soft and nontender. EXTREMITIES: 1+ peripheral edema similar bilaterally. NEUROLOGICAL: She follows my commands. She moves all extremities. There is no any motor deficits, but definitely her mental function is affected by quite significant dementia. LABORATORY DATA: Labs showed a white count of 8.3, hemoglobin 10.7, hematocrit 35.2, platelet count is 195,000. Sodium of 146, potassium 3.5, chloride 104, CO2 of 33, BUN 30, creatinine 1.33, glycemia is ranging from 111 to 178. Total protein 5.6, albumin 2.9, and total bilirubin 1.6. IMPRESSION: 1. Atrial fibrillation with rapid ventricular rate, on Multaq. Cardiology is planning to switch her to amiodarone. We will discuss this case with them. 2. Congestive heart failure, acute on chronic, systolic left ventricular ejection fraction of 20%, not a candidate for AICD, cardiac cath secondary to dementia. 3. Pneumonia, improved. 4. Respiratory failure, improved. PLAN: Plan is to discontinue antibiotics on the . We will discuss the case with Cardiology regarding switching her to amiodarone. We will talk to the family regarding her code status. She is 87 years old with severe dementia and still full code, and we will continue PT and OT. Start her on Megace 800 mg once a day. Job ID: [id number]
[2018-06-13] MEDS: predniSONE 20 MG TAB PO SCH (10:03)
[2018-06-13] MEDS: Dronedarone HCl 400 MG TAB PO SCH (10:03)
[2018-06-13] MEDS: Amlodipine 5 MG TAB PO SCH (10:03)
[2018-06-13] MEDS: Furosemide 40 MG TAB PO SCH ×2 (10:04→15:03)
[2018-06-13] MEDS: Lisinopril 5 MG TAB PO SCH (10:04)
[2018-06-13] MEDS: Carvedilol 6.25 MG TAB PO SCH ×2 (10:04→15:04)
[2018-06-13] MEDS: Apixaban 2.5 MG TAB PO SCH (10:04)
[2018-06-13 14:49] VITALS: TEMP 98.2
--- NOTE | 2018-06-13 15:58 | DIS ---
DATE OF ADMISSION: 06/01/2018 DATE OF DISCHARGE: 06/13/2018 ADMISSION DIAGNOSES: 1. Acute hypoxic respiratory failure. 2. Possible pneumonia. 3. Congestive heart failure exacerbation. 4. Non-ST elevation myocardial infarction. 5. Elevated LFTs, likely due to underlying congestive heart failure. 6. Elevated D-dimers. 7. Sepsis with organ dysfunction. DISCHARGE DIAGNOSES: 1. Atrial fibrillation with rapid ventricular rate, on Multaq, rate controlled currently. 2. Congestive heart failure, acute on chronic, systolic with left ventricular ejection fraction estimated 20% on current echo, not a candidate for AICD or catheter catheterization secondary to dementia. 3. Pneumonia. 4. Acute respiratory failure with hypoxemia. 5. Non-ST elevation myocardial infarction, likely type 2. 6. Elevated LFTs secondary to congestive heart failure. 7. Sepsis with organ dysfunction. CONSULTANTS: 1. Dr. Nino Gunderson, Cardiology Service. 2. Dr. Luke Steele, Pulmonary Service. 3. Dr. Alcaraz, Cardiology Service. 4. Dr. Delacruz, Pulmonary Service. 5. Dr. Winn, Cardiology Service. 6. Dr. Oseguera, Pulmonary Service. HOSPITAL COURSE: The patient is an 87-year-old female with past medical history of hypertension, diabetes mellitus, CHF, and arthritis, who came to the hospital after having a fall. For the last few days prior to this hospitalization, she felt weaker and short of breath. Apparently, she missed few doses of her Lasix. She went into hypoxic respiratory failure, came to the emergency room, and was found to be in CHF. The BiPAP was started, also since her temperature was up to 102, there was some suspicion for pneumonia. The patient was treated accordingly with broad-spectrum antibiotics. Also, she was diuresed and her troponins were elevated. At the time of ER evaluation, her EKG showed normal sinus rhythm with QT corrected at 472. Brain CT has no acute intracranial abnormalities. Cervical spine, no fracture. X-ray of the chest showed cardiomegaly and bilateral vascular congestion concerning for pneumonia. Echocardiogram showed estimated LVEF at 20% to 25% along with moderately enlarged right ventricular cavity, moderate mitral regurgitation, severe tricuspid regurgitation, moderate pulmonic regurgitation, and moderate concentric left ventricular hypertrophy. The patient was diuresed. Cardiology saw the patient. Dr. Gunderson agreed with the plan to continue diuresis and continue antibiotics. The patient was treated with nebulizers for her pneumonia. She went into a new onset atrial fibrillation with rapid ventricular response. She was started on Cardizem, switched to p.o. and Eliquis was added for prevention of CVA. Her IV Lasix was switched to oral and she was started on Coreg and lisinopril. Her other medications were stopped. She showed quite significant advanced dementia. I met with the family several times and the son who has power of assistant prosecuting attorney decided to make her [id number]-resuscitation status because of her advanced cardiac disease, dementia, and multiple other medical issues. The patient was started on Multaq. Her ventricular rate was controlled. After that, antibiotics were switched to oral levofloxacin and she gradually got to the point that we are sending her to residential facility for additional PT strengthening exercises. We are going to keep her on 2000 calories ADA diet, activities as tolerated. DISCHARGE MEDICATIONS: Her prednisone is going to be tapered down gradually for the next few days from 20 mg to 10. She will continue on: 1. Metformin 500 mg twice a day. 2. Lasix 20 mg twice a day. 3. P.r.n. Zofran. 4. Megace (megestrol) 800 mg once a day. 5. Lisinopril 5 mg once a day. 6. DuoNeb p.r.n. 7. Multaq 400 mg twice a day. 8. Carvedilol 6.25 mg 3 times a day. 9. Apixaban 2.5 mg twice a day. 10. Amlodipine 5 mg once a day. 11. Tylenol 650 mg q.4 hours as needed. She is finished with her antibiotic today and she will follow up with her primary care physician after she is discharged from the residential facility where she is going to get PT and continue her current regimen. TIME SPENT: Discharge time is more than 30 minutes. Job ID: [id number]
== END 2018-06-13 16:17 | DRG 871 ==
LOC: ERS 11:55 → IMCU/EMU 18:47
PROVIDERS: ADMIT Internal Medicine; ATTEND Internal Medicine
DX: A41.9 Sepsis, unspecified organism (principal); J18.9 Pneumonia, unspecified organism; I21.4 Non-ST elevation (NSTEMI) myocardial infarction; I50.23 Acute on chronic systolic (congestive) heart failure; J96.21 Acute and chronic respiratory failure with hypoxia; I48.1 Persistent atrial fibrillation; E11.9 Type 2 diabetes mellitus without complications; I11.0 Hypertensive heart disease with heart failure; F41.9 Anxiety disorder, unspecified; M19.90 Unspecified osteoarthritis, unspecified site; F03.90 Unspecified dementia, unspecified severity, without behavioral disturbance, psychotic disturbance, mood disturbance, and anxiety; I25.5 Ischemic cardiomyopathy; R65.20 Severe sepsis without septic shock; E83.39 Other disorders of phosphorus metabolism; Z79.84 Long term (current) use of oral hypoglycemic drugs; Z88.0 Allergy status to penicillin; Z87.891 Personal history of nicotine dependence
CPT/HCPCS: 36415; 36416; 51702; 70450; 71045; 72125; 80048; 80053; 81003; 81015; 82553; 82565; 82805; 83690; 83735; 83880; 84100; 84484; 85014; 85018; 85025; 85049; 85060; 85379; 87086; 93005; 93306; 93798; 94640; 94660; 96372; 96374; 96375; 96376; 99292; J0360; J0692; J1650; J1940; J2060; J2405; J3370; J3475; J3480; J7050; J7620; Q0162

== ENCOUNTER 2018-08-30 10:12 | Outpatient (CLI) | payer MEDICARE, BC ==
--- NOTE | 2018-08-30 10:29 | RAD ---
EXAM: Chest PA and lateral: HISTORY: Recent CHF. Pneumonia. COMPARISON: 06/07/2018, 06/03/2018 FINDINGS: Heart: Cardiomegaly. Aorta: Atherosclerosis Pulmonary vessels: Normal Costophrenic angles: Persistent blunting of the left and right costophrenic angles suggesting bilater al (left greater than right) pleural effusions. Lungs: Improved aeration of the lung parenchyma. Residual interstitial opacities in the left lung bas e and to lesser extent right lung base. Pneumothorax: No pneumothorax Osseous structures: No osseous abnormalities IMPRESSION: 1. Findings suggesting improved aeration of the lung parenchyma. Partial resolution of congestive hea rt failure. Small pleural effusions and interstitial opacities remain which may represent a mild component of volume overload. 2. Atherosclerosis.
== END 2018-08-30 10:13 | disposition home or self-care (01) ==
LOC: BICRAD 10:12
PROVIDERS: ATTEND Internal Medicine
DX: J18.9 Pneumonia, unspecified organism (principal); I50.9 Heart failure, unspecified; I70.0 Atherosclerosis of aorta; J90 Pleural effusion, not elsewhere classified; R91.8 Other nonspecific abnormal finding of lung field
CPT/HCPCS: 71046